=== PATIENT | female | born 1990 | race Caucasian/White ===

== ENCOUNTER 2018-03-18 21:16 | Emergency (ER) | payer BC ==
[~2018-03-18] VITALS: Ht 157.5 cm; Wt 83.9 kg
[2018-03-18 22:08] LABS: BASOPHILS % (AUTO) 0 % (0-10); EOSINOPHILS # (AUTO) 0.1 10^3/uL (0.0-0.3); EOSINOPHILS % (AUTO) 1 % (0-10); HEMATOCRIT 33 % (35-52); HEMOGLOBIN 11.7 G/DL (11.5-16.0); LYMPHOCYTES # (AUTO) 1.9 X 10^3 (1.0-4.0); LYMPHOCYTES % (AUTO) 19 % (12-44); MEAN CORPUSCULAR HEMOGLOBIN 29 PG (25-34); MEAN CORPUSCULAR HGB CONC 35 G/DL (32-36); MEAN CORPUSCULAR VOLUME 83 FL (80-99); MEAN PLATELET VOLUME 9.2 FL (7.4-10.4); MONOCYTES # (AUTO) 0.5 X 10^3 (0.0-1.0); MONOCYTES % (AUTO) 5 % (0-12); NEUTROPHILS # (AUTO) 7.7 X 10^3 (1.8-7.8); NEUTROPHILS % (AUTO) 75 % (42-75); PLATELET COUNT 281 10^3/uL (130-400); RED BLOOD COUNT 4.02 10^6/uL (4.35-5.85); RED CELL DISTRIBUTION WIDTH 14.6 % (10.0-14.5); WHITE BLOOD COUNT 10.3 10^3/uL (4.3-11.0)
[2018-03-18 22:20] LABS: BILIRUBIN,URINE NEGATIVE (NEGATIVE); CLARITY,URINE CLEAR; COLOR,URINE YELLOW; GLUCOSE, URINE (UA) NEGATIVE (NEGATIVE); KETONES,URINE NEGATIVE (NEGATIVE); LEUKOCYTE ESTERASE ,URINE NEGATIVE (NEGATIVE); NITRITE,URINE NEGATIVE (NEGATIVE); PH,URINE 7 (5-9); PROTEIN,URINE NEGATIVE (NEGATIVE); UROBILINOGEN,URINE NORMAL (NORMAL)
[2018-03-18 22:27] LABS: BACTERIA,URINE FEW /HPF
[2018-03-18 22:28] LABS: ALANINE AMINOTRANSFERASE 19 U/L (0-55); ALBUMIN 3.6 GM/DL (3.2-4.5); ALKALINE PHOSPHATASE 49 U/L (40-136); BILIRUBIN,TOTAL 0.3 MG/DL (0.1-1.0); BUN/CREATININE RATIO 9; CALCIUM 9.1 MG/DL (8.5-10.1); CARBON DIOXIDE 18 MMOL/L (21-32); CHLORIDE 107 MMOL/L (98-107); CREATININE SERUM 0.53 MG/DL (0.60-1.30); GFR ESTIMATED > 60; GLUCOSE 103 MG/DL (70-105); POTASSIUM 3.2 MMOL/L (3.6-5.0); SODIUM 137 MMOL/L (135-145)
--- NOTE | 2018-03-19 00:01 | ED GU-Female ---
General Chief Complaint: -Female Stated Complaint: 18.5W OB, BLEEDING Nursing Triage Note: PT AMB TO ROOM #7 W/O DIFFICULTY. A&OX4. PT REPORTS SHE IS 18.5 WKS AND WENT TO USE THE RESTROOM APPROX 2029 THIS EVENING WHEN SHE NOTICED "BRIGHT RED BLEEDING WHILE WIPING AND IN THE TOILET AFTER URINATION." PT DENIES ANY ABD. PAIN OR DISCOMFORT. PT NOT ACTIVELY BLEEDING. Nursing Sepsis Screen: No Definite Risk Source: patient Exam Limitations: no limitations History of Present Illness Date Seen by Provider: Mar 19, 2018 Time Seen by Provider: 20:30 Initial Comments This 28-year-old young lady presents to the emergency room at approximately 18 weeks gestational age with complaints of bright red blood per vagina on toilet paper after urinating. She denies any abdominal pain or cramping. She reports having some small bleeding around 6 weeks gestational age but none since then until today. She denies any intercourse or other vaginal disruption prior to the bleeding. heart tones are reassuring by Doppler. Blood type is A+. Allergies and Home Medications Patient Home Medication List Home Medication List Reviewed: Yes Review of Systems Review of Systems Constitutional: no symptoms reported EENTM: no symptoms reported Respiratory: no symptoms reported Cardiovascular: no symptoms reported Gastrointestinal: no symptoms reported Genitourinary: see HPI : Yes Musculoskeletal: no symptoms reported Skin: no symptoms reported Psychiatric/Neurological: No Symptoms Reported Endocrine: No Symptoms Reported Hematologic/Lymphatic: No Symptoms Reported Past Qhwutjp-Ldmpkq-Tehliw Hx Patient Social History Alcohol Use: Denies Use Recreational Drug Use: No Smoking Status: Never a Smoker 2nd Hand Smoke Exposure: No Recent Foreign Travel: No Contact w/Someone Who Travel: No Recent Infectious Disease Expo: No Recent Hopitalizations: No Physical Abuse: No Sexual Abuse: No Seasonal Allergies Seasonal Allergies: No Past Medical History Tonsillectomy Respiratory: No Cardiac: No Neurological: No Hx : 1 Hx Para: 0 Genitourinary: No Gastrointestinal: No Musculoskeletal: No Endocrine: No HEENT: No Cancer: No Psychosocial: No Integumentary: No Blood Disorders: No Physical Exam Vital Signs Vital Signs - First Documented 03/18/18 22:01 Temp 99.4 Pulse 81 Resp 17 B/P (MAP) 127/79 (95) Pulse Ox 98 O2 Delivery Room Air Capillary Refill : Less Than 3 Seconds Height, Weight, BMI Height: 5'2.00" Weight: 185lbs. oz. 83.909587qa; BMI Method:Stated General Appearance: WD/WN, no apparent distress HEENT: normal ENT inspection Neck: normal inspection Cardiovascular: regular rate, rhythm, no edema, no murmur Respiratory: lungs clear, normal breath sounds, no respiratory distress, no accessory muscle use Gastrointestinal: normal bowel sounds, non tender, soft, other ( heart tones in the 150s) Extremities: normal inspection, no pedal edema Neurologic/Psychiatric: [employer] II-XII nml as tested, no motor/sensory deficits, alert, normal mood/affect, oriented x 3 Skin: normal color, warm/dry Progress/Results/Core Measures Suspected Sepsis Recent Fever Within 48 Hours: No Infection Criteria Present: None New/Unexplained Altered Menta: No Sepsis Screen: No Definite Risk SIRS Temperature:99.4 Pulse: 81 Respiratory Rate: 17 Laboratory Tests 03/18/18 21:55: White Blood Count 10.3 Blood Pressure 127 /79 Mean: 95 Laboratory Tests 03/18/18 21:55: Creatinine 0.53L, Platelet Count 281, Total Bilirubin 0.3 Results/Orders Lab Results My Orders Vital Signs/I&O Capillary Refill : Less Than 3 Seconds Blood Pressure Mean: 95 Progress Note : Progress Note Patient does not seem to be actively bleeding at this time. heart tones are reassuring. There is no pain or cramping. Close follow-up with her hop weigher was recommended with vaginal rest in the meantime. Departure Impression Primary Impression: Vaginal bleeding during Disposition: 01 HOME, SELF-CARE Condition: Improved Departure-Patient Inst. Decision time for Depature: 23:57 Referrals: BRITTON BEYER DO (PCP/Family) Primary Care Physician Patient Instructions: NO INSTRUCTIONS GIVEN Add. Discharge Instructions: Observe strict pelvic rest until cleared by Dr. BEYER. This means nothing vaginally including intercourse. Return to care if you develop worsening symptoms or new symptoms such as pain, cramping, fever, or increased bleeding. Contact Dr. BEYER first thing in the morning for follow-up instructions. All discharge instructions reviewed with patient and/or family. Voiced understanding. Copy Copies To 1: BRITTON BEYER JOSHUA T MD Mar 19, 2018 00:01
[2018-03-19 00:07] VITALS: BP 110/76
== END 2018-03-19 00:08 | disposition home or self-care (01) ==
LOC: EDUNIT# 21:16 → ER 21:18
DX: O20.9 Hemorrhage in early pregnancy, unspecified (principal); Z3A.18 18 weeks gestation of pregnancy; Z90.89 Acquired absence of other organs
CPT/HCPCS: 36415; 80053; 81000; 84702; 85025; 86900; 86901

== ENCOUNTER → 2018-03-31 | Outpatient (CLI) | payer BC ==
--- NOTE | 2018-03-31 12:01 | Diagnostic Imaging Report ---
INDICATION: survey. TECHNIQUE: Multiple real-time grayscale images were obtained over the gravid uterus. COMPARISON: None FINDINGS: There is a single live fetus in a breech presentation. heart rate was recorded at 138 beats per minute. The placenta is anterior. The lip of the placenta is approximately 2.2 cm from the internal cervical os. Amniotic fluid volume appears normal. Cervical length is 4.3 cm. survey demonstrates kidneys, bladder and stomach to be unremarkable although the left kidney does show slight prominence of the renal pelvis measuring 6 mm. brain is unremarkable. There is a three-vessel cord. Cord insertion was not well seen. In addition, four-chamber heart view is not well seen. The spine is unremarkable. Biometrical measurements are as follows: Biparietal 5.02 cm, age 21 weeks 2 days. Head circumference 18.6 cm, age 21 weeks 0 days. Abdominal circumference 16.28 cm, age 21 weeks 3 days. Femur length 3.73 cm, age 22 weeks 0 days. Sonographic estimate age: 21 weeks 3 days. Sonographic estimated date of delivery: 08/08/2018. Estimated Weight: 430 gm (+/- 63 gm). LMP percentile: 91%. heart rate: 138 beats per minute. number: 1 of 1. IMPRESSION: Single live IUP 21 weeks 3 days gestational age. Estimated date of confinement sonographically is 08/08/2018. Note is made that the cord insertion and four-chamber heart views were not well visualized due to position. Followup ultrasound could be performed. Dictated by: Dictated on workstation # [id number]
== END ==
LOC: RAD 09:48 → EDUNIT# 10:00
PROVIDERS: ATTEND Obstetrics & Gynecology
DX: Z36.89 Encounter for other specified antenatal screening (principal); Z3A.21 21 weeks gestation of pregnancy
CPT/HCPCS: 76805

== ENCOUNTER 2018-07-24 19:47 | Outpatient (CLI) | payer BC ==
[~2018-07-24] VITALS: Ht 160 cm; Wt 89.8 kg
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
[2018-07-24 19:52] VITALS: BP 125/85
[2018-07-24] MEDS ORDERED: LACTATED RINGERS 1,000 ML IV ONE ×2 (20:12→20:30)
[2018-07-24] MEDS ORDERED: LACTATED RINGERS 1,000 ML IV SCH (20:15)
[2018-07-24 21:26] LABS: BILIRUBIN,URINE NEGATIVE (NEGATIVE); CLARITY,URINE CLEAR; COLOR,URINE YELLOW; GLUCOSE, URINE (UA) NEGATIVE (NEGATIVE); KETONES,URINE NEGATIVE (NEGATIVE); LEUKOCYTE ESTERASE ,URINE NEGATIVE (NEGATIVE); NITRITE,URINE NEGATIVE (NEGATIVE); PH,URINE 6.5 (5-9); PROTEIN,URINE 1+ (NEGATIVE); UROBILINOGEN,URINE NORMAL (NORMAL)
[2018-07-24] MEDS: D5 LR IV SOLUTION 1,000 ML IV SCH (21:26)
[2018-07-24 21:33] LABS: BACTERIA,URINE FEW /HPF; WBC,URINE 0-2 /HPF
[2018-07-24] MEDS ORDERED: ZOLPIDEM 5 MG (AMBIEN) TAB ONE (22:59)
[2018-07-24] MEDS ORDERED: ACETAMINOPHEN 500 MG TAB (TYLENOL) ONE (22:59)
[2018-07-24] MEDS ORDERED: FAMOTIDINE 20 MG (PEPCID) TABLET PO PRN (23:00)
[2018-07-24] MEDS ORDERED: ZOLPIDEM 5 MG (AMBIEN) TAB PO PRN (23:00)
[2018-07-24] MEDS ORDERED: ACETAMINOPHEN 500 MG TAB (TYLENOL) PO PRN (23:00)
[2018-07-24 23:29] VITALS: BP 113/65
[2018-07-25] MEDS ORDERED: DOXY25TA56 PO (03:54)
[2018-07-25] MEDS ORDERED: FAMO-119 PO (03:54)
[2018-07-25] MEDS ORDERED: B6/F1TAB PO (03:54)
[2018-07-25] MEDS ORDERED: PNV1TABL65 PO (03:54)
[2018-07-25] MEDS: D5 LR IV SOLUTION 1,000 ML IV SCH (05:24)
--- NOTE | 2018-07-25 06:20 | NUR ---
Dr. Mcgrath called to check on pt, update given, new order rc'd for regular diet, will round on pt. later this am.
[2018-07-25 08:04] VITALS: BP 108/66
--- NOTE | 2018-07-25 08:05 | NUR ---
PT IN BED, S/O AT THE BEDSIDE. INITIAL SHIFT ASSESSMENT COMPLETED; SEE INTERVENTION FOR FURTHER. NO NEEDS VOICED AT THIS TIME. BREAKFAST TRAY REMOVED. CALL LIGHT WITHIN REACH.
--- NOTE | 2018-07-25 09:00 | NUR ---
REFER TO LABOR FLOW SHEET.
--- NOTE | 2018-07-25 09:24 | NUR ---
DISCHARGE PAPERS PROVIDED AND REVIEWED WITH PT. PT VERBALIZES UNDERSTANDING AND DENIES ANY QUESTIONS AT THIS TIME. PAPER SIGNED. S/O AT THE BEDSIDE.
--- NOTE | 2018-07-25 09:27 | NUR ---
PT DISCHARGED FROM [facility] TO [facility] IN STABLE CONDITION ACC BY S/O.
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
== END 2018-07-25 09:27 | disposition home or self-care (01) ==
LOC: WSo 19:47 → LDRP 19:48 → WSo 07-25 09:27 → WS 07-25 11:51 → LDRP 07-25 11:51
PROVIDERS: ATTEND Obstetrics & Gynecology
DX: O62.2 Other uterine inertia (principal); Z3A.37 37 weeks gestation of pregnancy; V40.5XXA Car driver injured in collision with pedestrian or animal in traffic accident, initial encounter
CPT/HCPCS: 81000; 96360; 96361; 99213

== ENCOUNTER 2018-08-06 17:23 | Outpatient (CLI) | payer BC ==
[~2018-08-06] VITALS: Ht 160 cm; Wt 88.9 kg
[~2018-08-06 17:23] MED LIST: B6/F1TAB PO; DOXY25TA56 PO; FAMO-119 PO; PNV1TABL65 PO
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
[2018-08-06 17:35] VITALS: BP 121/86
--- NOTE | 2018-08-06 17:45 | NUR ---
sve by this rn cervix soft, high, posterior 3cm 70-80% effaced. old brown blood noted on exam glove. no leaking. membranes palpated with exam, able to bounce presenting part off cervix. reviewed plan to notify dr of assessment and co verbalized understanding of plan. s/o at bedside.
--- NOTE | 2018-08-06 17:52 | NUR ---
dr caruso notified of patient status, c/o, fhr pattern/uterine activity. continuing to observe for active labor.
[2018-08-06 18:44] LABS: BILIRUBIN,URINE NEGATIVE (NEGATIVE); CLARITY,URINE CLEAR; COLOR,URINE YELLOW; GLUCOSE, URINE (UA) NEGATIVE (NEGATIVE); KETONES,URINE NEGATIVE (NEGATIVE); LEUKOCYTE ESTERASE ,URINE NEGATIVE (NEGATIVE); NITRITE,URINE NEGATIVE (NEGATIVE); PH,URINE 6.5 (5-9); PROTEIN,URINE NEGATIVE (NEGATIVE); UROBILINOGEN,URINE NORMAL (NORMAL)
[2018-08-06 18:55] LABS: BACTERIA,URINE MODERATE /HPF; RBC,URINE 0-2 /HPF
--- NOTE | 2018-08-06 19:25 | NUR ---
SVE with no change and pt denies pain at this time, Dr Boyer called and discharge instructions given.
--- NOTE | 2018-08-06 19:38 | NUR ---
Pt given verbal and written discharge instructions and then ambulated to private vehicle with SO. No concerns at this time
[2018-08-06 20:12] VITALS: BP 121/86
--- NOTE | 2018-08-11 10:04 | Physician Query-Final Dx ---
SUSAN MANSFIELD 08/11/18 1004: Clinic Account Progress/Dx Physician Query: Please give a diagnosis and include the weeks of gestation thank you Date of Service Aug 06, 2018 at 17:23 LIZZIE LANG MD 08/11/18 1455: Clinic Account Progress/Dx DIAGNOSIS: Diagnosis False labor at 37 weeks gestation SUSAN MANSFIELD Aug 11, 2018 10:04 LIZZIE LANG MD Aug 11, 2018 14:55
== END 2018-08-06 19:38 | disposition home or self-care (01) ==
LOC: WSo 17:23 → LDRP 17:23 → WSo 19:38
PROVIDERS: ATTEND Obstetrics & Gynecology
DX: O47.1 False labor at or after 37 completed weeks of gestation (principal); Z3A.37 37 weeks gestation of pregnancy
CPT/HCPCS: 81000; 87088; 99213

== ENCOUNTER 2018-08-14 14:00 | Inpatient (IN) | payer BC ==
[~2018-08-14] VITALS: Ht 160 cm; Wt 89.9 kg
[2018-08-14] VITALS (37 sets, daily range): BP systolic 110–145; BP diastolic 66–84
--- NOTE | 2018-08-14 13:50 | NUR ---
JILLIAN ANDERSON presented to unit via ambulation, accompanied by S.O., for INDUCTION. JILLIAN ANDERSON weighed, gowned, voided, and to bed. EFHM and TOCO applied, VS taken. JILLIAN ANDERSON oriented to bed controls, call light, TV, heat, and A/C controls.
[2018-08-14] MEDS ORDERED: D5 LR IV SOLUTION 1,000 ML IV ONE (14:10)
[2018-08-14] MEDS ORDERED: D5 LR IV SOLUTION 1,000 ML IV SCH (15:49)
[2018-08-14] MEDS ORDERED: MINERAL OIL CONCENTRATE 99.9% 15 ML UDC TOP PRN (16:00)
[2018-08-14 16:04] LABS: BASOPHILS % (AUTO) 0 % (0-10); EOSINOPHILS % (AUTO) 0 % (0-10); HEMATOCRIT 36 % (35-52); HEMOGLOBIN 12.3 G/DL (11.5-16.0); LYMPHOCYTES # (AUTO) 1.5 X 10^3 (1.0-4.0); LYMPHOCYTES % (AUTO) 17 % (12-44); MEAN CORPUSCULAR HEMOGLOBIN 28 PG (25-34); MEAN CORPUSCULAR HGB CONC 34 G/DL (32-36); MEAN CORPUSCULAR VOLUME 83 FL (80-99); MEAN PLATELET VOLUME 10.2 FL (7.4-10.4); MONOCYTES # (AUTO) 0.6 X 10^3 (0.0-1.0); MONOCYTES % (AUTO) 7 % (0-12); NEUTROPHILS # (AUTO) 6.8 X 10^3 (1.8-7.8); NEUTROPHILS % (AUTO) 76 % (42-75); PLATELET COUNT 224 10^3/uL (130-400); WHITE BLOOD COUNT 8.9 10^3/uL (4.3-11.0)
[2018-08-14] MEDS ORDERED: OXYTOCIN/NORMAL SALINE 500 ML IV SCH (17:42)
[2018-08-14] MEDS ORDERED: BUPIVACAINE 0.25% 30 ML (SENSORCAINE) VIAL ONE (18:03)
[2018-08-14] MEDS ORDERED: LIDOCAINE PF 2% 5 ML (XYLOCAINE) VIAL ONE (18:03)
[2018-08-14] MEDS ORDERED: fentaNYL INJECTION 100 MCG/2 ML AMP ONE (18:04)
[2018-08-14] MEDS ORDERED: SUFENTA 0.6MCG/ML BUPIVA 0.125 100 ML ONE (18:31)
--- NOTE | 2018-08-14 18:35 | History & Physical-OB ---
OB - Chief Complaint & HPI Date/Time Date of Admission: Date of Admission: Aug 14, 2018 at 2:00 pm Date seen by a Provider: Aug 14, 2018 Time Seen by a Provider: 18:33 Chief Complaint/History OB-Reason for Admission/Chief: Induction of Labor Hx : 1 Hx Para: 0 Expected Date of Delivery: Aug 14, 2018 Gestational Age in Weeks: 40 Gestational Age in Days: 0 Indication for induction: post dates Admission Nurse Assessment Rev: Yes History of Labs A pos Antibody neg RI RPR NR HBsAg NR HIV NR GC neg GBS neg Allergies and Home Medications Allergies Coded Allergies: No Known Drug Allergies (Unverified , 07/24/18) Home Medications B6/FA/B12/Co Q10/Herb No.225 1 Each Tablet, 1 EACH PO DAILY, (Reported) Doxylamine Succinate 25 Mg Tablet, 25 MG PO HS PRN for sl, (Reported) Famotidine 20 Mg Tablet, 20 MG PO HS PRN for DYSPEPSIA, (Reported) Pnv with Ca,No.72/Iron/FA 1 Each Tablet, 1 EACH PO DAILY, (Reported) Patient Home Medication List Home Medication List Reviewed: Yes OB - History Hx of Present Care: Yes Ultrasounds: Normal mid trimester US Obstetrical Complications: None Medical Complications: None Patient Past Medical History n/a Social History/Family History HIV/AIDS: No Recent Infectious Disease Expo: No Sexually Transmitted Disease: No Alcohol Use: Denies Use Recreational Drug Use: No 2nd Hand Smoke Exposure: No Immunizations Hepatitis A: No Hepatitis B: Yes Date of Influenza Vaccine: May 26, 2018 OB - Admission Exam Physical Exam HEENT: NCAT Heart: Rhythm Normal Lungs: Clear Abdomen: Gravid Extremities: Normal Reflexes: Normal Cervical Dilatation: 5cm Effacement: 75% Station: -1 Membranes: Intact Heart Rate: 130's Accelerations: Accelerations Present Decelerations: No Decelerations Short Term Variability: Present Retirement Variability: Average (6-25) Contractions on Admission: < 5 Minutes Apart Intensity: Mild Labs Laboratory Tests Test 08/14/18 14:30 Range/Units White Blood Count 8.9 4.3-11.0 10^3/uL Red Blood Count 4.39 4.35-5.85 10^6/uL Hemoglobin 12.3 11.5-16.0 G/DL Hematocrit 36 35-52 % Mean Corpuscular Volume 83 80-99 FL Mean Corpuscular Hemoglobin 28 25-34 PG Mean Corpuscular Hemoglobin Concent 34 32-36 G/DL Red Cell Distribution Width 14.0 10.0-14.5 % Platelet Count 224 130-400 10^3/uL Mean Platelet Volume 10.2 7.4-10.4 FL Neutrophils (%) (Auto) 76 H 42-75 % Lymphocytes (%) (Auto) 17 12-44 % Monocytes (%) (Auto) 7 0-12 % Eosinophils (%) (Auto) 0 0-10 % Basophils (%) (Auto) 0 0-10 % Neutrophils # (Auto) 6.8 1.8-7.8 X 10^3 Lymphocytes # (Auto) 1.5 1.0-4.0 X 10^3 Monocytes # (Auto) 0.6 0.0-1.0 X 10^3 Eosinophils # (Auto) 0.0 0.0-0.3 10^3/uL Basophils # (Auto) 0.0 0.0-0.1 10^3/uL OB - Assessment/Plan/Diagnosis Assessment Assessment: induction of labor Admission Dx 28 yo @ 40 weeks Post dates GBS neg Admission Status: Inpatient Order (span 2 midnights) Reason for Inpatient Admission: Induction of term labor Plan Plan: Induction Induction Method: BRITTON IBARRA DO Aug 14, 2018 6:35 pm
--- NOTE | 2018-08-14 18:36 | NUR ---
Trino Yanes CRNA here for epidural placement. Procedure explained, consent reviewed and signed by anesthesia. Questions answered to patient's satisfaction. Time out taken to verify correct patient/procedure. Patient up to side of bed, assisted into sitting position. Betadine prep done x3 and sterile drape applied. Local done, see anesthesia record. Test dose given, see anesthesia record for drug and dosage. Epidural catheter secured in place. Epidural placement complete. Assisted back into bed, monitors adjusted. Epidural dosed, see anesthesia record. Epidural of Sufenta/Bupvicaine @12 cc/hr stated per pump. Patient tolerated procedure well.
--- NOTE | 2018-08-14 18:36 | NUR ---
JILLIAN ANDERSON presented to unit via ambulation, accompanied by s.o., with for induction. JILLIAN ANDERSON weighed, gowned, voided, and to bed. EFHM and TOCO applied, VS taken. JILLIAN ANDERSON oriented to bed controls, call light, TV, heat, and A/C controls. Addendum: 08/14/18 at 2006 by AKIRA LUIS RN Note entered in error, wrong time
[2018-08-14] MEDS ORDERED: LACTATED RINGERS 1,000 ML IV SCH (18:51)
[2018-08-14] MEDS ORDERED: ONDANSETRON 4 MG/2 ML (SDV) Z0FRAN IV PRN (19:00)
[2018-08-14] MEDS ORDERED: diphenhydrAMINE 50 MG/ML INJ (BENADRYL) IV PRN (19:00)
[2018-08-14] MEDS ORDERED: NALOXONE 0.4 MG/ML 1 ML (NARCAN) VIAL IV PRN (19:00)
[2018-08-14] MEDS ORDERED: EPIDURAL (SUFENTA 0.6MCG/ML BUPIVA 0.125%) 100 ML BAG EPI PRN (19:00)
[2018-08-14] MEDS ORDERED: CATHETER FLUSH 10 ML SYR IV SCH (22:00)
[2018-08-14] MEDS ORDERED: LIDOCAINE/EPI 2% 1:200,00 (XYLOCAINE) 10 ML VIAL ONE (22:41)
[2018-08-14] MEDS: OXYTOCIN/NORMAL SALINE 500 ML IV SCH ×2 (23:21→23:55)
[2018-08-14] MEDS ORDERED: METHYLERGONOVINE 0.2 MG/ML (METHERGINE) AMP ONE (23:28)
[2018-08-14] MEDS ORDERED: HYDROcodone/APAP 5 MG/325 MG (LORTAB) TAB PO PRN (23:45)
[2018-08-14] MEDS ORDERED: BENZOCAINE/MENTHOL (DERMOPLAST) 56 ML CAN TP PRN (23:45)
[2018-08-14] MEDS ORDERED: DIBUCAINE (NUPERCAINAL) 1% OINT 30 GM TOP PRN (23:45)
[2018-08-14] MEDS ORDERED: WITCH HAZEL(TUCKS) 40 EA JAR TOP PRN (23:45)
[2018-08-14] MEDS ORDERED: TETANUS,DIPTH,PERTUSS P/F (BOOSTRIX) 0.5 ML VIAL IM ONE (23:45)
[2018-08-14] MEDS ORDERED: MEASLES,MUMPS,RUBELLA 1 EA INJ SQ ONE (23:45)
--- NOTE | 2018-08-14 23:53 | OB Labor & Delivery Record ---
L&D History Date of Service Date of Service: Aug 14, 2018 History Expected Date of Delivery: Aug 14, 2018 Gestational Age in Weeks: 40 Hx : 1 Hx Para: 0 Complications Events: Routine care Operative Indications (Cesarea: N/A-Vaginal Delivery Intrapartal Events: None L&D Stage1 Stage One Onset of Labor - Date: Aug 14, 2018 Monitors and Tracing Monitor Mode: External Heart Rate: 125 Monitor Accelerations: Uniform Monitor Decelerations: None Station: -1 Leaf Blender Variability: Average (6-10) Short Term Variability: Present Presentation: Vertex Vital Signs VS - Last 72 Hours, by Label 08/14/18 08/14/18 08/14/18 08/14/18 14:10 15:30 17:55 18:40 Temp 97.6 97.8 Pulse 98 87 96 101 Resp 18 18 18 20 B/P (MAP) 118/77 (91) 116/75 (89) 119/70 (86) 129/84 (99) Pulse Ox 99 O2 Delivery Room Air 08/14/18 08/14/18 08/14/18 08/14/18 18:48 18:53 18:58 19:01 Pulse 100 99 103 103 Resp 20 20 20 18 B/P (MAP) 124/83 (97) 126/83 (97) 129/73 (91) 114/67 (83) Pulse Ox 99 99 99 O2 Delivery Room Air Room Air Room Air Room Air 08/14/18 08/14/18 08/14/18 08/14/18 19:04 19:07 19:10 19:12 Pulse 100 118 108 115 Resp 18 18 18 18 B/P (MAP) 114/67 (83) 119/75 (90) 116/76 (89) 115/71 (86) O2 Delivery Room Air Room Air Room Air Room Air 08/14/18 08/14/18 08/14/18 08/14/18 19:15 19:21 19:25 19:31 Temp 97.0 Pulse 99 104 111 104 Resp 18 18 18 16 B/P (MAP) 117/75 (89) 118/72 (87) 113/66 (82) 119/74 (89) O2 Delivery Room Air Room Air Room Air Room Air 08/14/18 08/14/18 08/14/18 08/14/18 19:35 19:42 19:46 19:52 Pulse 98 100 100 98 Resp 16 16 16 16 B/P (MAP) 120/75 (90) 119/78 (92) 116/68 (84) 122/69 (86) O2 Delivery Room Air Room Air Room Air Room Air 08/14/18 08/14/18 08/14/18 08/14/18 19:56 20:02 20:15 20:30 Pulse 90 93 90 92 Resp 16 16 16 16 B/P (MAP) 116/76 (89) 118/75 (89) 114/74 (87) 116/72 (87) O2 Delivery Room Air Room Air Room Air Room Air Rupture of Membranes Spontaneous Ruture of Membrane: No Amniotic Membrane Rupture Time: 1545 Amniotic Membrane Fluid Desc.: Clear Vaginal Bleeding Description: Normal Show Induction/Anesthesia Epidural Cath Placement - Time: 1848 Progress/Notes Pitocin augmentation used to a max dose of 8 mu/min, patient progressed to complete and +1 station before attempting/encouraged to push L&D Stage2 Stage Two Stage II Date: Aug 14, 2018 Monitors and Tracing Monitor Mode: External Heart Rate: 125 Monitor Decelerations: Variable Leaf Blender Variability: Minimal (3-5) Short Term Variability: Present Position: Right Occiput Anterior Presentation: Vertex Signs of Distress by FHT Signs of Distress Prolonged episode of bradycardia 60-80s lasting approx 5 min, due to distress kiwi vacuum extractor briefly explained to the patient for low vacuum extraction. After position confirmed, and noted at +2-+3 station, suction cup placed down sagital suture. 550 mmHg applied by vacuum hand pump at the start of the next contraction. The with gentle extension of the head, and rml the 's head was delivered. Nuchal cord reduced x 1. Anterior right and then posterior shoulder-left delivered. Then remainder of the infant is then brought out onto maternal abdomen. Cord Descript/Complications Cord Vessel Description: 3 Vessels Complications nuchal cord reduced x 1 Delivery Type Infant Delivery Method: Low Vacuum Extraction Anterior Shoulder: Right Episiotomy/Perineal Laceration Laceraction(s)/Extensions: Yes Episiotomy Description: Right Mediolateral Location Modifier: Right Sutures Used: Vicryl Degree (describe repair) RML repaired in usual fashion using 3-0 rapide and 2-0 vicryl suture Condition of Infant Delivery 1 minute Comment: 8 5 minute Comment: 9 Notes Live female infant weight 8lbs 6 oz. Condition of Infant Condition of Infant: Living Exam: No Observed Abnormalities Resuscitation Resuscitation: N/A - Spontaneous Resp L&D Stage3 Stage Three Stage III Date: Aug 14, 2018 Pictocin Pitocin Administration mu/min: 8 Pitocin ml/hr: 8 Pitocin Administration Comment: Pitocin increased per protocol. Retained portion of the placenta identified at time of exam after placenta had passed. Due to adequate analgesia, a nirav curette is used to gentle curette and remove the remaining tissue. After which uterine fundus became firm. 0.2 mg Methergine given IM to ensure good uterine tone. Placenta Delivery Placenta Delivery: Spontaneous Delivery Summary Summary Estimated blood loss (mL): 400 Attending at delivery: Britton Beyer DO Condition of Delivery Examined: Cervix Examined, Uterus Explored Post Hemorrhage: No Condition of Mother stable Condition of (s) stable BRITTON BEYER DO Aug 14, 2018 11:53 pm
--- NOTE | 2018-08-14 23:56 | Discharge Inst-Women's Service ---
Discharge Inst-Women's Serv Depart Medication/Instructions New, Converted or Re-Newed RX: RX on Chart Final Diagnosis PPD 2 VAVD Consults/Follow Up Additional Follow Up: Yes Orders/Referrals Dr. Beyer in 6 weeks Activity Activity: Activity as Tolerated Driving Instructions: No Driving for 1 Week NO SMOKING: NO SMOKING Nothing Inside Vagina: No Douching, No [place], No Tampons Diet Discharge Diet: No Restrictions Symptoms to Report to : Bleeding Excessive, Pain Increased, Fever Over 101 Degrees F, Vaginal Bleeding Increase, Questions/Concerns For Any Problems or Questions: Contact Your Physician BRITTON BEYER DO Aug 14, 2018 11:56 pm
[2018-08-14] MEDS ORDERED: Benzocaine/Menthol TP (23:57)
[2018-08-14] MEDS ORDERED: DOCU100C37 PO (23:57)
[2018-08-14] MEDS ORDERED: IBUP-844 PO (23:57)
[2018-08-14] MEDS ORDERED: FERR325T18 PO (23:57)
[2018-08-14] MEDS ORDERED: ACHD5005 PO (23:57)
[2018-08-15] VITALS (13 sets, daily range): BP systolic 99–120; BP diastolic 56–80
[2018-08-15] MEDS: IBUPROFEN 600 MG (MOTRIN) TAB PO SCH ×4 (02:19→22:37)
--- NOTE | 2018-08-15 03:10 | NUR ---
Pt. transferred to PP room 312 via wheelchair, accompanied by staff, SO, and . Pt. oriented to room, call light, and room service. Ice water and packet given and explained to pt. Will continue to monitor.
--- NOTE | 2018-08-15 03:15 | NUR ---
Pt. ambulated to bathroom with stand by assist and was able to void without difficulty.
[2018-08-15 04:33] LABS: BASOPHILS % (AUTO) 0 % (0-10); EOSINOPHILS % (AUTO) 0 % (0-10); HEMATOCRIT 32 % (35-52); HEMOGLOBIN 10.8 G/DL (11.5-16.0); LYMPHOCYTES # (AUTO) 1.2 X 10^3 (1.0-4.0); LYMPHOCYTES % (AUTO) 9 % (12-44); MEAN CORPUSCULAR HEMOGLOBIN 28 PG (25-34); MEAN CORPUSCULAR HGB CONC 34 G/DL (32-36); MEAN CORPUSCULAR VOLUME 83 FL (80-99); MEAN PLATELET VOLUME 9.6 FL (7.4-10.4); MONOCYTES # (AUTO) 0.8 X 10^3 (0.0-1.0); MONOCYTES % (AUTO) 6 % (0-12); NEUTROPHILS # (AUTO) 12.6 X 10^3 (1.8-7.8); NEUTROPHILS % (AUTO) 86 % (42-75); PLATELET COUNT 209 10^3/uL (130-400); RED CELL DISTRIBUTION WIDTH 13.9 % (10.0-14.5); WHITE BLOOD COUNT 14.6 10^3/uL (4.3-11.0)
[2018-08-15] MEDS ORDERED: CATHETER FLUSH 10 ML SYR IV SCH (06:00)
--- NOTE | 2018-08-15 07:17 | Anesthesia-Regional Post-Op ---
Regional Patient Condition Mental Status: Alert, Oriented x3 Circulation: Same as Pre-Op Headache: Absent Sensation: Full Recovery Motor Block: Absent Post Op Complications Complications None Follow Up Care/Instructions Patient Instructions None needed. Anesthesia/Patient Condition Patient is doing well, no complaints, stable vital signs, no apparent adverse anesthesia problems. No complications reported per nursing. GAYATHRI CHE CRNA Aug 15, 2018 07:17
--- NOTE | 2018-08-15 08:52 | Postpartum Progress Note ---
Note Note Day # 1 Subjective: Patient is without complaints. Ambulating, voiding. Tolerating a regular diet without nausea or vomiting. Normal lochia. Pain is well controlled with oral pain medications. Objective: Physical Exam: General - Alert and oriented, no apparent distress Abdomen - Soft, appropriately tender to palpation, non-distended, fundus firm at umbilicus Extremities - no edema, negative Carl's bilaterally Assessment: PPD 1 VAVD Acute blood loss anemia Plan: Routine care. Encourage breast feeding. Encourage ambulation. Ferrous sulfate supplementation. Plan for discharge tomorrow Vitals - Labs Vital Signs - I&O Vital Signs Date Time Temp Pulse Resp B/P (MAP) Pulse Ox O2 Delivery O2 Flow Rate FiO2 08/15/18 05:25 97.9 70 16 105/71 (82) 98 Room Air 08/15/18 02:00 101 18 109/69 (82) Room Air 08/15/18 01:47 97 18 102/66 (78) Room Air 08/15/18 01:30 106 18 110/61 (77) Room Air 08/15/18 01:16 97 18 113/69 (84) Room Air 08/15/18 01:00 103 18 113/71 (85) Room Air 08/15/18 00:46 97 18 103/61 (75) Room Air 08/15/18 00:16 99 18 108/57 (74) Room Air 08/15/18 00:00 98.7 115 18 120/77 (91) Room Air 08/14/18 23:46 151 18 128/76 (93) Room Air 08/14/18 23:31 114 18 138/80 (99) Room Air 08/14/18 23:16 115 18 145/73 (97) Room Air 08/14/18 23:05 110 16 141/79 (99) 100 Non Rebreather 15.00 08/14/18 22:45 116 16 138/79 (98) Room Air 08/14/18 22:30 106 16 120/80 (93) Room Air 08/14/18 22:15 100 16 118/76 (90) Room Air 08/14/18 22:05 101 16 110/71 (84) Room Air 08/14/18 21:50 101 16 115/74 (88) Room Air 08/14/18 21:35 92 16 114/71 (85) Room Air 08/14/18 21:20 97 16 118/77 (91) Room Air 08/14/18 21:02 98.0 98 16 116/72 (87) Room Air 08/14/18 20:46 94 16 116/73 (87) Room Air 08/14/18 20:30 92 16 116/72 (87) Room Air 08/14/18 20:15 90 16 114/74 (87) Room Air 08/14/18 20:02 93 16 118/75 (89) Room Air 08/14/18 19:56 90 16 116/76 (89) Room Air 08/14/18 19:52 98 16 122/69 (86) Room Air 08/14/18 19:46 100 16 116/68 (84) Room Air 08/14/18 19:42 100 16 119/78 (92) Room Air 08/14/18 19:35 98 16 120/75 (90) Room Air 08/14/18 19:31 104 16 119/74 (89) Room Air 08/14/18 19:25 97.0 111 18 113/66 (82) Room Air 08/14/18 19:21 104 18 118/72 (87) Room Air 08/14/18 19:15 99 18 117/75 (89) Room Air 08/14/18 19:12 115 18 115/71 (86) Room Air 08/14/18 19:10 108 18 116/76 (89) Room Air 08/14/18 19:07 118 18 119/75 (90) Room Air 08/14/18 19:04 100 18 114/67 (83) Room Air 08/14/18 19:01 103 18 114/67 (83) Room Air 08/14/18 18:58 103 20 129/73 (91) 99 Room Air 08/14/18 18:53 99 20 126/83 (97) 99 Room Air 08/14/18 18:48 100 20 124/83 (97) 99 Room Air 08/14/18 18:40 101 20 129/84 (99) 99 Room Air 08/14/18 17:55 97.8 96 18 119/70 (86) 08/14/18 15:30 87 18 116/75 (89) 08/14/18 14:10 97.6 98 18 118/77 (91) I & O 2/1/19 07:00 Intake Total 3000 ml Balance 3000 ml Labs Laboratory Tests 08/14/18 14:30: White Blood Count 8.9, Red Blood Count 4.39, Hemoglobin 12.3, Hematocrit 36, Mean Corpuscular Volume 83, Mean Corpuscular Hemoglobin 28, Mean Corpuscular Hemoglobin Concent 34, Red Cell Distribution Width 14.0, Platelet Count 224, Mean Platelet Volume 10.2, Neutrophils (%) (Auto) 76H, Lymphocytes (%) (Auto) 17 , Monocytes (%) (Auto) 7, Eosinophils (%) (Auto) 0, Basophils (%) (Auto) 0, Neutrophils # (Auto) 6.8, Lymphocytes # (Auto) 1.5, Monocytes # (Auto) 0.6, Eosinophils # (Auto) 0.0, Basophils # (Auto) 0.0 08/15/18 04:05: White Blood Count 14.6H, Red Blood Count 3.84L, Hemoglobin 10.8L, Hematocrit 32L , Mean Corpuscular Volume 83, Mean Corpuscular Hemoglobin 28, Mean Corpuscular Hemoglobin Concent 34, Red Cell Distribution Width 13.9, Platelet Count 209, Mean Platelet Volume 9.6, Neutrophils (%) (Auto) 86H, Lymphocytes (%) (Auto) 9L , Monocytes (%) (Auto) 6, Eosinophils (%) (Auto) 0, Basophils (%) (Auto) 0, Neutrophils # (Auto) 12.6H, Lymphocytes # (Auto) 1.2, Monocytes # (Auto) 0.8, Eosinophils # (Auto) 0.0, Basophils # (Auto) 0.0 BRITTON BEYER DO Aug 15, 2018 08:52
[2018-08-15] MEDS: PRENATAL VITAMIN 1 EA TAB PO SCH (09:37)
[2018-08-15] MEDS: FERROUS SULF 325 MG (IRON) TAB PO SCH (09:37)
[2018-08-15] MEDS: DOCUSATE SODIUM 100 MG (COLACE) CAP PO SCH ×2 (09:37→20:38)
[2018-08-16 02:10] VITALS: BP 107/73
[2018-08-16] MEDS: IBUPROFEN 600 MG (MOTRIN) TAB PO SCH ×2 (04:50→06:21)
--- NOTE | 2018-08-16 08:16 | Postpartum Progress Note ---
Note Note Day # 2 Subjective: Patient is without complaints. Ambulating, voiding. Tolerating a regular diet without nausea or vomiting. Normal lochia. Pain is well controlled with oral pain medications. Objective: Physical Exam: General - Alert and oriented, no apparent distress Abdomen - Soft, appropriately tender to palpation, non-distended, fundus firm at umbilicus Extremities - no edema, negative Carl's bilaterally Assessment: PPD 2 VAVD Plan: Routine care. Encourage breast feeding. Encourage ambulation. Ferrous sulfate supplementation. Plan for discharge today Vitals - Labs Vital Signs - I&O Vital Signs Date Time Temp Pulse Resp B/P (MAP) Pulse Ox O2 Delivery O2 Flow Rate FiO2 08/16/18 02:10 97.4 73 18 107/73 (84) 98 Room Air 08/15/18 20:45 97.7 74 18 111/80 (90) 98 Room Air 08/15/18 16:11 98.0 90 18 107/67 (80) 98 Room Air 08/15/18 12:00 98.0 88 16 107/56 (73) 98 Room Air BRITTON BEYER DO Aug 16, 2018 8:15 am
[2018-08-16 08:30] VITALS: BP 121/71
[2018-08-16] MEDS: FERROUS SULF 325 MG (IRON) TAB PO SCH (11:54)
[2018-08-16] MEDS: PRENATAL VITAMIN 1 EA TAB PO SCH (11:54)
--- NOTE | 2018-08-16 11:55 | NUR ---
JILLIAN ANDERSON demonstrates understanding of discharge instructions and accurately returns instructions upon questioning. Copy of Post-Discharge Instructions and Medication Discharge Instructions given to patient. JILLIAN ANDERSON is able to manage continuing needs after discharge. Patients belongings returned to patient. Skin dry and intact; no breakdown noted. Patient discharged from 3312-1 on 08-16-18 at 1155. JILLIAN ANDERSON left floor via ambulation, accompanied by staff and family.
== END 2018-08-16 11:55 | disposition home or self-care (01) | DRG 787 ==
LOC: LDRP 14:00
PROVIDERS: ADMIT Obstetrics & Gynecology; ATTEND Obstetrics & Gynecology
PROC: 10D00Z1 Extraction of Products of Conception, Low, Open Approach (ICD-10-PCS; principal; 2018-08-14)
PROC: 0W8NXZZ Division of Female Perineum, External Approach (ICD-10-PCS; 2018-08-14)
DX: O48.0 Post-term pregnancy (principal); O76 Abnormality in fetal heart rate and rhythm complicating labor and delivery; O69.81X0 Labor and delivery complicated by cord around neck, without compression, not applicable or unspecified; O90.81 Anemia of the puerperium; D62 Acute posthemorrhagic anemia; Z37.0 Single live birth; Z3A.40 40 weeks gestation of pregnancy
CPT/HCPCS: 36415; 85025; 86850; 86900; 86901; 90471

== ENCOUNTER → 2019-07-21 | Outpatient (CLI) | payer BC, OTHER ==
[~2019-07-21] MED LIST changes: +ACHD5005 PO; +Benzocaine/Menthol TP; +DOCU100C37 PO; +FERR325T18 PO; +IBUP-844 PO
--- NOTE | 2019-07-21 12:24 | Diagnostic Imaging Report ---
INDICATION: survey. TECHNIQUE: Multiple Real-time grayscale images were obtained over the gravid uterus. COMPARISON: None. FINDINGS: There is a single live fetus in a breech presentation. The heart rate was recorded at 122 BPM. The placenta is posterior. The amniotic fluid index is 8.7 cm. The survey demonstrates the kidneys, bladder, and stomach to be unremarkable. The brain is unremarkable. There is a four-chamber heart. There is a three-vessel cord with normal insertion. The spine is unremarkable. Biometrical measurements are as follows: Biparietal 5.11 cm, age 21 weeks 4 days. Head circumference 19.24 cm, age 21 weeks 4 days. Abdominal circumference 16.22 cm, age 21 weeks 3 days. Femur length 3.72 cm, age 21 weeks 6 days. Sonographic estimate age: 21 weeks 5 days. Sonographic estimated date of delivery: 11/26/2019. Estimated Weight: 432 gm (+/- 63 gm). LMP percentile: 81%. heart rate: 122 beats per minute. number: 1 of 1. IMPRESSION: Single live IUP of 21 weeks 5 days gestational age with an estimated date of confinement sonographically of 11/26/2019. Dictated by: Dictated on workstation # [id number]
== END ==
LOC: RAD 09:56
PROVIDERS: ATTEND Obstetrics & Gynecology
DX: Z36.89 Encounter for other specified antenatal screening (principal); Z3A.21 21 weeks gestation of pregnancy
CPT/HCPCS: 76805

== ENCOUNTER 2019-11-12 14:09 | Inpatient (IN) | payer BC ==
[2019-11-12] VITALS (42 sets, daily range): BP systolic 91–131; BP diastolic 54–80
[~2019-11-12] VITALS: Ht 160 cm; Wt 85.0 kg
--- NOTE | 2019-11-12 14:20 | NUR ---
JILLIAN ANDERSON presented to unit via from ED, accompanied by self ( to arrive soon), with c/o LABOR. JILLIAN ANDERSON weighed, gowned, voided, and to bed. EFHM and TOCO applied, VS taken. JILLIAN ANDERSON oriented to bed controls, call light, TV, heat, and A/C controls.
[2019-11-12] MEDS ORDERED: D5 LR IV SOLUTION 1,000 ML IV ONE (14:27)
--- NOTE | 2019-11-12 14:28 | History & Physical-OB ---
OB - Chief Complaint & HPI Date/Time Date of Admission: Date of Admission: Nov 12, 2019 at 14:09 Date seen by a Provider: Nov 12, 2019 Time Seen by a Provider: 13:30 Chief Complaint/History OB-Reason for Admission/Chief: Onset of Labor Hx : 2 Hx Para: 1 Expected Date of Delivery: December 02, 2019 Gestational Age in Weeks: 37 Gestational Age in Days: 1 Admission Nurse Assessment Rev: Yes History of Labs GBS neg Allergies and Home Medications Allergies Coded Allergies: No Known Drug Allergies (Unverified , 07/24/18) Home Medications B6/FA/B12/Co Q10/Herb No.225 1 Each Tablet, 1 EACH PO DAILY, (Reported) Docusate Sodium 100 Mg Capsule, 100 MG PO BID PRN for CONSTIPATION-1ST LINE Prescribed by: BRITTON BEYER on 08/14/182356 Doxylamine Succinate 25 Mg Tablet, 25 MG PO HS PRN for sl, (Reported) Famotidine 20 Mg Tablet, 20 MG PO HS PRN for DYSPEPSIA, (Reported) Ferrous Sulfate 325 Mg Tablet, 325 MG PO DAILY Prescribed by: BRITTON BEYER on 08/14/182356 Hydrocodone Bit/Acetaminophen 1 Tab Tab, 1 TAB PO Q4H PRN for PAIN-MODERATE Prescribed by: BRITTON BEYER on 08/14/182356 Ibuprofen 600 Mg Tablet, 600 MG PO Q6H Prescribed by: BRITTON BEYER on 08/14/182356 Pnv with Ca,No.72/Iron/FA 1 Each Tablet, 1 EACH PO DAILY, (Reported) [Benzocaine/Menthol] 56 ML AEROSOL, 56 ML TP UD PRN for PAIN- SEE INSTRUCTIONS EXTERNAL USE ONLY Prescribed by: BRITTON BEYER on 08/14/182356 Patient Home Medication List Home Medication List Reviewed: Yes OB - History Hx of Present Care: Yes Ultrasounds: Normal mid trimester US Obstetrical Complications: None Medical Complications: None Patient Past Medical History n/a Social History/Family History HIV/AIDS: No Sexually Transmitted Disease: No 2nd Hand Smoke Exposure: No Immunizations Hepatitis A: No Hepatitis B: Yes Date of Influenza Vaccine: May 26, 2018 OB - Admission Exam Physical Exam HEENT: NCAT Heart: Rhythm Normal Lungs: Clear Abdomen: Gravid Extremities: Normal Reflexes: Normal Cervical Dilatation: 5cm Effacement: 75% Station: -1 Membranes: Intact Heart Rate: 130's Accelerations: Accelerations Present Decelerations: No Decelerations Short Term Variability: Present Clerk Of Scales Variability: Average (6-25) Contractions on Admission: < 5 Minutes Apart Intensity: Moderate OB - Assessment/Plan/Diagnosis Assessment Assessment: active labor Admission Dx 29 yo @ 37.1 weeks Active labor GBS neg Admission Status: Inpatient Order (span 2 midnights) Reason for Inpatient Admission: Active labor at term Plan Plan: Expectant Management BRITTON BEYER DO Nov 12, 2019 14:28
[2019-11-12] MEDS: D5 LR IV SOLUTION 1,000 ML IV SCH ×2 (14:45→20:47)
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
[2019-11-12 15:08] LABS: BASOPHILS % (AUTO) 0 % (0-10); EOSINOPHILS % (AUTO) 0 % (0-10); HEMATOCRIT 36 % (35-52); HEMOGLOBIN 12.3 G/DL (11.5-16.0); LYMPHOCYTES # (AUTO) 1.8 X 10^3 (1.0-4.0); LYMPHOCYTES % (AUTO) 18 % (12-44); MEAN CORPUSCULAR HEMOGLOBIN 28 PG (25-34); MEAN CORPUSCULAR HGB CONC 34 G/DL (32-36); MEAN CORPUSCULAR VOLUME 82 FL (80-99); MEAN PLATELET VOLUME 9.2 FL (7.4-10.4); MONOCYTES # (AUTO) 0.6 X 10^3 (0.0-1.0); MONOCYTES % (AUTO) 6 % (0-12); NEUTROPHILS # (AUTO) 7.4 X 10^3 (1.8-7.8); NEUTROPHILS % (AUTO) 76 % (42-75); PLATELET COUNT 226 10^3/uL (130-400); RED CELL DISTRIBUTION WIDTH 14.2 % (10.0-14.5); WHITE BLOOD COUNT 9.8 10^3/uL (4.3-11.0)
[2019-11-12] MEDS ORDERED: DOXY1TAB6 PO (15:23)
[2019-11-12] MEDS ORDERED: fentaNYL 2 mcg/ml BUPIVA 0.125 100 ML ONE (15:43)
--- NOTE | 2019-11-12 15:44 | NUR ---
Antonio Doyle [employer]PER[employer] notified of request for epidural. 1633 Antonio at bedside preparing for epidural.
[2019-11-12] MEDS ORDERED: BUPIVACAINE 0.25% 30 ML (SENSORCAINE) VIAL ONE (16:00)
[2019-11-12] MEDS ORDERED: fentaNYL INJECTION 100 MCG/2 ML AMP ONE (16:00)
[2019-11-12] MEDS ORDERED: LACTATED RINGERS 1,000 ML IV ONE (16:36)
[2019-11-12] MEDS ORDERED: fentaNYL 2 mcg/ml BUPIVA 0.125 100 ML IV SCH (16:36)
[2019-11-12] MEDS ORDERED: CATHETER FLUSH 10 ML SYR IV PRN (16:45)
[2019-11-12] MEDS ORDERED: EPIDURAL (fentaNYL 2 MCG/ML BUPIVA 0.125%)100 ML BAG EPI SCH (16:45)
[2019-11-12] MEDS ORDERED: NALOXONE 0.4 MG/ML 1 ML (NARCAN) VIAL IV PRN (16:45)
[2019-11-12] MEDS ORDERED: OXYTOCIN PRE-MIX DRIP 500 ML IV ONE (18:14)
--- NOTE | 2019-11-12 18:14 | NUR ---
Dr Carter called in to inquire about [place] - pt comfortable but irregular contractions. Will follow mikaela land.
[2019-11-12] MEDS ORDERED: OXYTOCIN PRE-MIX DRIP 500 ML IV SCH ×2 (18:19→22:30)
[2019-11-12] MEDS ORDERED: LIDOCAINE/EPI 2% 1:200,00 (XYLOCAINE) 20 ML VIAL ONE (21:33)
--- NOTE | 2019-11-12 21:35 | NUR ---
Dr. Carter called and informed that pt. was starting to feel pressure. SVE shows pt 9cm and 0 station. states he will be out.
--- NOTE | 2019-11-12 21:59 | NUR ---
2158: Delivery of viable male . Placed on mother's chest. Dried, warmed, and stimulated. Pitocin turned off at this time. 2205: Pt. remains in stirrups for repair. 2207: Placenta delivered. Pitocin wide open. 2214: Pericare done and pt out of stirrups. Fundus massaged. Fundus 2 under umbilicus, firm, and minimal bleeding noted. No clots expressed. 2220: Epidural turned off. 2230: Fundus massaged. Fundus 2 under umbilicus, firm, and minimal bleeding noted. No clots expressed. 2245: Fundus massaged. Fundus 2 under umbilicus, firm, and minimal bleeding noted. No clots expressed. 2300: Fundus massaged. Fundus 2 under umbilicus, firm, and moderate bleeding noted. No clots expressed. 2315: Fundus massaged. Fundus 2 under umbilicus, firm, and moderate bleeding noted. No clots expressed.
[2019-11-12] MEDS ORDERED: CATHETER FLUSH 10 ML SYR IV SCH (22:00)
[2019-11-12] MEDS ORDERED: WITCH HAZEL(TUCKS) 40 EA JAR TOP PRN (22:30)
[2019-11-12] MEDS ORDERED: TETANUS,DIPTH,PERTUSS P/F (BOOSTRIX) 0.5 ML VIAL IM ONE (22:30)
[2019-11-12] MEDS ORDERED: HYDROcodone/APAP 5 MG/325 MG (LORTAB) TAB PO PRN (22:30)
[2019-11-12] MEDS ORDERED: MEASLES,MUMPS,RUBELLA 1 EA INJ SQ ONE (22:30)
[2019-11-12] MEDS ORDERED: BENZOCAINE/MENTHOL (DERMOPLAST) 60 ML CAN TP PRN (22:30)
--- NOTE | 2019-11-12 22:37 | OB Labor & Delivery Record ---
L&D History Date of Service Date of Service: Nov 12, 2019 History Expected Date of Delivery: December 02, 2019 Gestational Age in Weeks: 37 Hx : 2 Hx Para: 1 Complications Events: Routine care Operative Indications (Cesarea: N/A-Vaginal Delivery Intrapartal Events: None L&D Stage1 Stage One Onset of Labor - Date: Nov 12, 2019 Monitors and Tracing Monitor Mode: External Heart Rate: 130 Station: -1 Vital Signs VS - Last 72 Hours, by Label 11/12/19 11/12/19 11/12/19 11/12/19 14:30 15:00 16:10 16:21 Temp 36.9 36.9 37.1 Pulse 97 97 105 91 Resp 16 16 B/P (MAP) 115/74 (88) 114/75 (88) 114/70 (85) Pulse Ox 97 97 100 99 O2 Delivery Room Air Room Air Room Air Room Air 11/12/19 11/12/19 11/12/19 11/12/19 16:24 16:30 16:33 16:37 Pulse 105 92 103 93 B/P (MAP) 116/69 (85) 112/67 (82) 101/58 (72) 112/61 (78) Pulse Ox 98 98 98 98 O2 Delivery Room Air Room Air Room Air Room Air 11/12/19 11/12/19 11/12/19 11/12/19 16:43 16:49 16:53 17:00 Pulse 96 99 116 110 Resp 16 B/P (MAP) 116/62 (80) 108/66 (80) 92/54 (67) 115/69 (84) Pulse Ox 98 97 98 O2 Delivery Room Air Room Air 11/12/19 11/12/19 11/12/19 11/12/19 17:05 17:15 17:20 17:23 Pulse 92 85 87 91 Resp 16 B/P (MAP) 113/80 (91) 108/72 (84) 109/75 (86) 109/74 (86) Pulse Ox 99 98 98 98 11/12/19 11/12/19 11/12/19 11/12/19 17:30 17:33 17:45 18:00 Temp 37.4 Pulse 85 87 84 88 B/P (MAP) 105/70 (82) 110/71 (84) 107/71 (83) 91/60 (70) Pulse Ox 98 99 99 11/12/19 11/12/19 11/12/19 11/12/19 18:15 18:30 18:45 19:15 Temp 36.5 Pulse 93 93 92 84 Resp 16 18 B/P (MAP) 94/64 (74) 93/61 (72) 94/64 (74) 102/71 (81) O2 Delivery Room Air Room Air Room Air Room Air 11/12/19 11/12/19 11/12/19 11/12/19 19:30 19:45 20:00 20:15 Pulse 87 94 96 93 B/P (MAP) 104/60 (75) 101/69 (80) 100/67 (78) 108/66 (80) O2 Delivery Room Air Room Air Room Air Room Air 11/12/19 11/12/19 11/12/19 11/12/19 20:30 20:45 21:00 21:15 Temp 36.2 Pulse 85 74 82 93 B/P (MAP) 102/65 (77) 108/67 (81) 111/72 (85) 108/65 (79) O2 Delivery Room Air Room Air Room Air Room Air 11/12/19 21:30 Pulse 87 B/P (MAP) 110/73 (85) O2 Delivery Room Air Rupture of Membranes Spontaneous Ruture of Membrane: No Amniotic Membrane Rupture Time: 1635 Amniotic Membrane Fluid Desc.: Clear Vaginal Bleeding Description: Normal Show Induction/Anesthesia Epidural Cath Placement - Time: 1624 Progress/Notes Patient admitted in active labor5-6 cm, epidural requested and obtained after admission. Labor contraction pattern noted as dysfunction, pitocin augmentation was started at low dose and reached max dose of 4 mu min. Progressed to complete and +1 station L&D Stage2 Stage Two Stage II Date: Nov 12, 2019 Monitors and Tracing Monitor Mode: External Heart Rate: 130 Monitor Accelerations: Uniform Monitor Decelerations: Variable Animal Nutritionist Variability: Average (6-10) Short Term Variability: Present Position: Right Occiput Anterior Presentation: Vertex Cord Descript/Complications Cord Vessel Description: 3 Vessels Complications nuchal x 1 Delivery Type Delivery Method: Spontaneous Vaginal Anterior Shoulder: Right Episiotomy/Perineal Laceration Laceraction(s)/Extensions: Yes Episiotomy Description: Midline (midline episiotomy performed when periurethral tearing and bleeding was noted) Sutures Used: Vicryl Degree (describe repair) bilateral periurethral tears and midline episiotomy repaired using 3-0 rapide and 2-0 vicryl suture in usual fashion Condition of Delivery 1 minute Comment: 8 5 minute Comment: 9 Notes Live male infant weight 7lbs 5 oz Condition of Infant Condition of : Living Exam: No Observed Abnormalities Resuscitation Resuscitation: N/A - Spontaneous Resp L&D Stage3 Stage Three Stage III Date: Nov 12, 2019 Pictocin Pitocin Administration mu/min: 4 Pitocin ml/hr: 4 Pitocin Administration Comment: 30 mu wide open at delivery of placenta Placenta Delivery Placenta Delivery: Spontaneous Delivery Summary Summary Estimated blood loss (mL): 350 Attending at delivery: Britton Beyer DO Condition of Delivery Examined: Cervix Examined, Uterus Explored Post Hemorrhage: No Condition of Mother stable Condition of Infant (s) stable BRITTON BEYER DO Nov 12, 2019 22:37
[2019-11-12] MEDS: IBUPROFEN 600 MG (MOTRIN) TAB PO SCH (22:51)
--- NOTE | 2019-11-12 23:45 | NUR ---
2345: Fundus massaged. Fundus firm and one under umbilicus. Minimal bleeding noted. No clots expressed. Pt. still cannot lift right leg off of bed. 0015: Fundus massaged. Fundus firm and one under umbilicus. Minimal bleeding noted. No clots expressed. Pt. still cannot lift right leg off of bed. sleeping on mom's chest. Pt informed that I will check back in the next thirty minutes or so.
[2019-11-13] VITALS (11 sets, daily range): BP systolic 99–114; BP diastolic 62–78
--- NOTE | 2019-11-13 01:45 | NUR ---
Pt. states that she thinks that she can walk to the bathroom. Pt. sat up on side of bed. When nurse tried to get pt up to walk to the bathroom, pt still cannot bear weight on right leg. Pt placed directly in wheelchair and moved to room. Pt does not feel the need to void at this moment.
--- NOTE | 2019-11-13 03:30 | NUR ---
Pt. up to bathroom. Voided large amount of clear urine. Dermoplast and Tucks pads used. Clean underwear, pad, and gown put on. Pt helped with pericare. No problems noted.
[2019-11-13] MEDS: IBUPROFEN 600 MG (MOTRIN) TAB PO SCH ×4 (05:03→23:57)
[2019-11-13 05:32] LABS: BASOPHILS % (AUTO) 0 % (0-10); EOSINOPHILS % (AUTO) 0 % (0-10); HEMATOCRIT 31 % (35-52); HEMOGLOBIN 10.4 G/DL (11.5-16.0); LYMPHOCYTES # (AUTO) 1.9 X 10^3 (1.0-4.0); LYMPHOCYTES % (AUTO) 15 % (12-44); MEAN CORPUSCULAR HEMOGLOBIN 28 PG (25-34); MEAN CORPUSCULAR HGB CONC 33 G/DL (32-36); MEAN CORPUSCULAR VOLUME 84 FL (80-99); MONOCYTES # (AUTO) 0.9 X 10^3 (0.0-1.0); MONOCYTES % (AUTO) 7 % (0-12); NEUTROPHILS # (AUTO) 9.7 X 10^3 (1.8-7.8); NEUTROPHILS % (AUTO) 78 % (42-75); PLATELET COUNT 212 10^3/uL (130-400); RED CELL DISTRIBUTION WIDTH 13.9 % (10.0-14.5); WHITE BLOOD COUNT 12.5 10^3/uL (4.3-11.0)
[2019-11-13] MEDS ORDERED: CATHETER FLUSH 10 ML SYR IV SCH (06:00)
[2019-11-13] MEDS ORDERED: IBUP-844 PO (07:30)
[2019-11-13] MEDS ORDERED: HYDR-83 PO (07:30)
[2019-11-13] MEDS ORDERED: DCS100C PO (07:30)
[2019-11-13] MEDS ORDERED: FERR325T18 PO (07:30)
[2019-11-13] MEDS ORDERED: BENZ78AE2 TP (07:30)
--- NOTE | 2019-11-13 07:32 | Discharge Inst-Women's Service ---
Discharge Inst-Women's Serv Depart Medication/Instructions New, Converted or Re-Newed RX: RX on Chart Final Diagnosis PPD 2 NVD Problems Reviewed?: Yes Consults/Follow Up Additional Follow Up: Yes Orders/Referrals Dr. Beyer in 6 weeks Activity Activity: Activity as Tolerated Driving Instructions: No Driving for 1 Week NO SMOKING: NO SMOKING Nothing Inside Vagina: No Douching, No [employer], No Tampons Diet Discharge Diet: No Restrictions Symptoms to Report to : Bleeding Excessive, Pain Increased, Fever Over 101 Degrees F, Vaginal Bleeding Increase, Questions/Concerns For Any Problems or Questions: Contact Your Physician BRITTON BEYER DO November 13, 2019 07:32
--- NOTE | 2019-11-13 07:36 | Postpartum Progress Note ---
Note Note Day # 1 Subjective: Patient is without complaints. Ambulating, voiding. Tolerating a regular diet without nausea or vomiting. Normal lochia. Pain is well controlled with oral pain medications. Objective: Physical Exam: General - Alert and oriented, no apparent distress Abdomen - Soft, appropriately tender to palpation, non-distended, fundus firm at umbilicus Extremities - no edema, negative Carl's bilaterally Assessment: PPD 1 NVD Acute blood loss anemia Plan: Routine care. Encourage breast feeding. Encourage ambulation. Ferrous sulfate supplementation. Plan for discharge tomorrow Vitals - Labs Vital Signs - I&O Vital Signs Date Time Temp Pulse Resp B/P (MAP) Pulse Ox O2 Delivery O2 Flow Rate FiO2 11/13/19 05:03 36.4 72 16 107/67 (80) 97 Room Air 11/13/19 01:30 36.5 96 114/69 (84) Room Air 11/13/19 01:15 84 106/63 (77) Room Air 11/13/19 01:00 84 102/62 (75) Room Air 11/13/19 00:45 93 109/66 (80) Room Air 11/13/19 00:30 96 108/67 (81) Room Air 11/13/19 00:15 36.9 95 104/66 (79) Room Air 11/13/19 00:00 88 99/62 (74) Room Air 11/12/19 23:45 82 102/63 (76) Room Air 11/12/19 23:30 93 110/66 (81) Room Air 11/12/19 23:15 37.3 93 103/61 (75) Room Air 11/12/19 23:00 93 108/61 (77) Room Air 11/12/19 22:45 37.2 101 121/68 (85) Room Air 11/12/19 22:30 37.3 93 131/70 (90) Room Air 11/12/19 22:15 94 117/65 (82) Room Air 11/12/19 22:00 90 111/72 (85) Room Air 11/12/19 21:45 92 117/69 (85) Room Air 11/12/19 21:30 87 110/73 (85) Room Air 11/12/19 21:15 93 108/65 (79) Room Air 11/12/19 21:00 82 111/72 (85) Room Air 11/12/19 20:45 74 108/67 (81) Room Air 11/12/19 20:30 36.2 85 102/65 (77) Room Air 11/12/19 20:15 93 108/66 (80) Room Air 11/12/19 20:00 96 100/67 (78) Room Air 11/12/19 19:45 94 101/69 (80) Room Air 11/12/19 19:30 87 104/60 (75) Room Air 11/12/19 19:15 36.5 84 18 102/71 (81) Room Air 11/12/19 18:45 92 94/64 (74) Room Air 11/12/19 18:30 93 93/61 (72) Room Air 11/12/19 18:15 93 16 94/64 (74) Room Air 11/12/19 18:00 37.4 88 91/60 (70) 11/12/19 17:45 84 107/71 (83) 99 11/12/19 17:33 87 110/71 (84) 99 11/12/19 17:30 85 105/70 (82) 98 11/12/19 17:23 91 109/74 (86) 98 11/12/19 17:20 87 16 109/75 (86) 98 11/12/19 17:15 85 108/72 (84) 98 11/12/19 17:05 92 113/80 (91) 99 11/12/19 17:00 110 115/69 (84) 11/12/19 16:53 116 92/54 (67) 98 11/12/19 16:49 99 108/66 (80) 97 Room Air 11/12/19 16:43 96 16 116/62 (80) 98 Room Air 11/12/19 16:37 93 112/61 (78) 98 Room Air 11/12/19 16:33 103 101/58 (72) 98 Room Air 11/12/19 16:30 92 112/67 (82) 98 Room Air 11/12/19 16:24 105 116/69 (85) 98 Room Air 11/12/19 16:21 91 114/70 (85) 99 Room Air 11/12/19 16:10 37.1 105 114/75 (88) 100 Room Air 11/12/19 15:00 36.9 97 16 97 Room Air 11/12/19 14:30 36.9 97 16 115/74 (88) 97 Room Air I & O 11/13/19 07:00 Intake Total 3000 ml Balance 3000 ml Labs Laboratory Tests 11/12/19 14:40: White Blood Count 9.8, Red Blood Count 4.41, Hemoglobin 12.3, Hematocrit 36, Mean Corpuscular Volume 82, Mean Corpuscular Hemoglobin 28, Mean Corpuscular Hemoglobin Concent 34, Red Cell Distribution Width 14.2, Platelet Count 226, Mean Platelet Volume 9.2, Neutrophils (%) (Auto) 76H, Lymphocytes (%) (Auto) 18, Monocytes (%) (Auto) 6, Eosinophils (%) (Auto) 0, Basophils (%) (Auto) 0, Neutrophils # (Auto) 7.4, Lymphocytes # (Auto) 1.8, Monocytes # (Auto) 0.6, Eosinophils # (Auto) 0.0, Basophils # (Auto) 0.0 11/13/19 05:22: White Blood Count 12.5H, Red Blood Count 3.74L, Hemoglobin 10.4L, Hematocrit 31L , Mean Corpuscular Volume 84, Mean Corpuscular Hemoglobin 28, Mean Corpuscular Hemoglobin Concent 33, Red Cell Distribution Width 13.9, Platelet Count 212, Mean Platelet Volume 9.0, Neutrophils (%) (Auto) 78H, Lymphocytes (%) (Auto) 15, Monocytes (%) (Auto) 7, Eosinophils (%) (Auto) 0, Basophils (%) (Auto) 0, Neutrophils # (Auto) 9.7H, Lymphocytes # (Auto) 1.9, Monocytes # (Auto) 0.9, Eosinophils # (Auto) 0.0, Basophils # (Auto) 0.0 BRITTON BEYER DO November 13, 2019 07:36
[2019-11-13] MEDS: DOCUSATE SODIUM 100 MG (COLACE) CAP PO SCH ×2 (08:20→21:53)
[2019-11-13] MEDS: PRENATAL VITAMIN 1 EA TAB PO SCH (08:20)
[2019-11-13] MEDS: FERROUS SULF 325 MG (IRON) TAB PO SCH (08:20)
--- NOTE | 2019-11-13 11:51 | Anesthesia-Regional Post-Op ---
Regional Patient Condition Mental Status: Alert, Oriented x3 Circulation: Same as Pre-Op Headache: Absent Sensation: Full Recovery Motor Block: Absent Post Op Complications Complications None Follow Up Care/Instructions Patient Instructions None needed. Anesthesia/Patient Condition Patient is doing well, no complaints, stable vital signs, no apparent adverse anesthesia problems. No complications reported per nursing. JACKIE GODWIN CRNA November 13, 2019 11:51
[2019-11-14 02:00] VITALS: BP 95/55
--- NOTE | 2019-11-14 02:00 | NUR ---
pt awake laying in bed, FOB holding infant. Pt denies needs.
[2019-11-14] MEDS: IBUPROFEN 600 MG (MOTRIN) TAB PO SCH ×2 (05:27→11:19)
--- NOTE | 2019-11-14 07:45 | Postpartum Progress Note ---
Note Note Day # 2 Subjective: Patient is without complaints. Ambulating, voiding. Tolerating a regular diet without nausea or vomiting. Normal lochia. Pain is well controlled with oral pain medications. Objective: Physical Exam: General - Alert and oriented, no apparent distress Abdomen - Soft, appropriately tender to palpation, non-distended, fundus firm at umbilicus Extremities - no edema, negative Carl's bilaterally Assessment: PPD 2 NVD Acute blood loss anemia Plan: Routine care. Encourage breast feeding. Encourage ambulation. Ferrous sulfate supplementation. Plan for discharge today Vitals - Labs Vital Signs - I&O Vital Signs Date Time Temp Pulse Resp B/P (MAP) Pulse Ox O2 Delivery O2 Flow Rate FiO2 11/14/19 02:00 36.5 67 16 95/55 (68) Room Air 11/13/19 20:10 36.5 79 18 110/71 (84) Room Air 11/13/19 13:20 37.0 72 16 108/76 (87) 100 Room Air 11/13/19 08:15 36.7 78 16 102/78 (86) 97 Room Air BRITTON BEYER DO November 14, 2019 07:45
[2019-11-14 11:18] VITALS: BP 108/55
[2019-11-14] MEDS: PRENATAL VITAMIN 1 EA TAB PO SCH (11:19)
[2019-11-14] MEDS: DOCUSATE SODIUM 100 MG (COLACE) CAP PO SCH (11:19)
[2019-11-14] MEDS: FERROUS SULF 325 MG (IRON) TAB PO SCH (11:19)
--- NOTE | 2019-11-14 12:35 | NUR ---
Discharge instructions explained, signed and copy to patient. pt verbalized understanding of instructions and denied questions. prescriptions given.
[2019-11-14 13:40] VITALS: BP 108/55
--- NOTE | 2019-11-14 13:40 | NUR ---
Discharged to home with belongings in hand. Downstairs ambulates self and accompanied by s.o. and staff member. To private vehicle.
== END 2019-11-14 13:40 | disposition home or self-care (01) | DRG 806 ==
LOC: LDRP 14:09
PROVIDERS: ADMIT Obstetrics & Gynecology; ATTEND Obstetrics & Gynecology
PROC: 10E0XZZ Delivery of Products of Conception, External Approach (ICD-10-PCS; principal; 2019-11-12)
PROC: 0W8NXZZ Division of Female Perineum, External Approach (ICD-10-PCS; 2019-11-12)
PROC: 0UQMXZZ Repair Vulva, External Approach (ICD-10-PCS; 2019-11-12)
DX: O99.214 Obesity complicating childbirth (principal); O90.81 Anemia of the puerperium; D62 Acute posthemorrhagic anemia; Z37.0 Single live birth; O71.82 Other specified trauma to perineum and vulva; O69.81X0 Labor and delivery complicated by cord around neck, without compression, not applicable or unspecified; E66.9 Obesity, unspecified; Z3A.37 37 weeks gestation of pregnancy
CPT/HCPCS: 36415; 85025; 86850; 86900; 86901

== ENCOUNTER → 2021-08-08 | Outpatient (CLI) | payer BC ==
[~2021-08-08] MED LIST changes: +BENZ78AE5 TP; +DOCU-239 PO; +DOXY1TAB6 PO
--- NOTE | 2021-08-08 17:16 | Diagnostic Imaging Report ---
INDICATION: survey. TECHNIQUE: Multiple real-time grayscale images were obtained over the gravid uterus. COMPARISON: None FINDINGS: A single live fetus in a cephalic presentation. heart rate was recorded 143 bpm. Placenta is posterior. Amniotic fluid volume is normal. Cervical length is 5.9 cm. survey demonstrates some mild prominence of the renal collecting systems bilaterally. bladder and stomach are unremarkable. The brain is unremarkable. There is a 4 chamber heart. There is a three-vessel cord. Cord insertion is somewhat limited due to position. spine is unremarkable. Biometrical measurements are as follows: Biparietal 4.46 cm, age 19 weeks 4 days. Head circumference 17.96 cm, age 20 weeks 3 days. Abdominal circumference 14.61 cm, age 20 weeks 0 days. Femur length 3.19 cm, age 20 weeks 2 days. Sonographic estimate age: 20 weeks 0 days. Sonographic estimated date of delivery: 12/26/21. Estimated Weight: 323 gm (+/- 47 gm). LMP percentile: 42%. heart rate: 143 beats per minute. number: 1 of 1. IMPRESSION: 1. Single IUP 20 weeks 0 days gestational age. Estimated date of confinement sonographically is 12/26/2021. 2. survey is unremarkable although cord insertion was somewhat limited in evaluation due to position. In addition, both kidneys did show some prominence of the renal collecting systems. Followup to be performed. Dictated by: Dictated on workstation # [id number]
== END ==
LOC: RAD 15:15
PROVIDERS: ATTEND Obstetrics & Gynecology
DX: Z34.02 Encounter for supervision of normal first pregnancy, second trimester (principal); Z3A.20 20 weeks gestation of pregnancy
CPT/HCPCS: 76805

== ENCOUNTER 2021-12-13 09:40 | Inpatient (IN) | payer BC ==
[2021-12-13] VITALS (47 sets, daily range): BP systolic 104–134; BP diastolic 53–79
[~2021-12-13] VITALS: Ht 157.5 cm; Wt 90.7 kg
[2021-12-13 10:06] LABS: BILIRUBIN,URINE NEGATIVE (NEGATIVE); CLARITY,URINE CLEAR; COLOR,URINE YELLOW; GLUCOSE, URINE (UA) NEGATIVE (NEGATIVE); KETONES,URINE NEGATIVE (NEGATIVE); LEUKOCYTE ESTERASE ,URINE 1+ (NEGATIVE); NITRITE,URINE NEGATIVE (NEGATIVE); PROTEIN,URINE NEGATIVE (NEGATIVE)
[2021-12-13 10:14] LABS: BACTERIA,URINE FEW /HPF; RBC,URINE RARE /HPF
[2021-12-13] MEDS ORDERED: MINERAL OIL 30 ML TOP PRN (11:00)
[2021-12-13] MEDS: D5 LR IV SOLUTION 1,000 ML IV SCH ×2 (11:10→19:17)
[2021-12-13 11:32] LABS: BASOPHILS % (AUTO) 0 % (0-10); EOSINOPHILS % (AUTO) 0 % (0-10); HEMATOCRIT 34 % (35-52); HEMOGLOBIN 11.4 g/dL (11.5-16.0); LYMPHOCYTES # (AUTO) 1.8 10^3/uL (1.0-4.0); LYMPHOCYTES % (AUTO) 20 % (12-44); MEAN CORPUSCULAR HEMOGLOBIN 28 pg (25-34); MEAN CORPUSCULAR HGB CONC 34 g/dL (32-36); MEAN CORPUSCULAR VOLUME 84 fL (80-99); MEAN PLATELET VOLUME 9.6 fL (9.0-12.2); MONOCYTES # (AUTO) 0.6 10^3/uL (0.0-1.0); MONOCYTES % (AUTO) 6 % (0-12); NEUTROPHILS # (AUTO) 6.6 10^3/uL (1.8-7.8); NEUTROPHILS % (AUTO) 73 % (42-75); PLATELET COUNT 173 10^3/uL (130-400); WHITE BLOOD COUNT 9.1 10^3/uL (4.3-11.0)
[2021-12-13] MEDS ORDERED: BUPIVACAINE 0.25% 10 ML (SENSORCAINE) VIAL ONE (12:58)
[2021-12-13] MEDS ORDERED: fentaNYL INJ 100 MCG/2 ML AMP ONE (12:58)
--- NOTE | 2021-12-13 13:00 | History & Physical-OB ---
OB - Chief Complaint & HPI Date/Time Date of Admission: Date of Admission: Dec 13, 2021 at 9:52 am Date seen by a Provider: Dec 13, 2021 Time Seen by a Provider: 12:30 Chief Complaint/History OB-Reason for Admission/Chief: Onset of Labor Hx : 3 Hx Para: 2 Expected Date of Delivery: Dec 26, 2021 Gestational Age in Weeks: 38 Gestational Age in Days: 1 Admission Nurse Assessment Rev: Yes History of Labs A pos Antibody neg RI RPR NR HBsAg NR HIV NR GC neg GBS neg Allergies and Home Medications Allergies Coded Allergies: No Known Drug Allergies (Unverified , 07/24/18) Patient Home Medication List Home Medication List Reviewed: Yes Benzocaine/Menthol (Dermoplast Pain Relieving [place]) 78 Gm Aerosol, 56 ML TP UD PRN for PAIN- SEE INSTRUCTIONS Prescribed by: BRITTON BEYER on 11/13/19729 Docusate Sodium (Dok) 100 Mg Capsule, 100 MG PO BID PRN for CONSTIPATION-1ST LINE Prescribed by: BRITTON BEYER on 11/13/19729 Doxylamine Succinate (Unisom) 25 Mg Tablet, 25 MG PO HS PRN for sl, (Reported) Entered as Reported by: JOSSUE CARTER on 07/25/18 0354 Ferrous Sulfate (Ferrous Sulfate) 325 Mg Tablet, 325 MG PO DAILY Prescribed by: BRITTON BEYER on 11/13/19729 Hydrocodone/Acetaminophen (Hydrocodone-Acetamin 5-325 mg) 1 Each Tablet, 1 TAB PO Q4H PRN for PAIN-MODERATE (5-7) Prescribed by: BRITTON BEYER on 11/13/19729 Ibuprofen (Ibu) 600 Mg Tablet, 600 MG PO Q6HR Prescribed by: BRITTON BEYER on 11/13/19729 OB - History Hx of Present Care: Yes Ultrasounds: Normal mid trimester US Obstetrical Complications: None Medical Complications: None Patient Past Medical History n/a Social History/Family History 2nd Hand Smoke Exposure: No Immunizations Hepatitis A: No Hepatitis B: Yes OB - Admission Exam Physical Exam HEENT: NCAT Heart: Rhythm Normal Lungs: Clear Abdomen: Gravid Extremities: Normal Reflexes: Normal Cervical Dilatation: 5cm Effacement: 75% Station: -1 Membranes: Intact Heart Rate: 130's Accelerations: Accelerations Present Decelerations: No Decelerations Short Term Variability: Present Acquisition Analyst Variability: Average (6-25) Contractions on Admission: < 5 Minutes Apart Intensity: Firm Labs Laboratory Tests Test 12/13/21 09:55 12/13/21 11:10 Range/Units Urine Color YELLOW Urine Clarity CLEAR Urine pH 7.0 5-9 Urine Specific [place] 1.010 L 1.016-1.022 Urine Protein NEGATIVE NEGATIVE Urine Glucose (UA) NEGATIVE NEGATIVE Urine Ketones NEGATIVE NEGATIVE Urine Nitrite NEGATIVE NEGATIVE Urine Bilirubin NEGATIVE NEGATIVE Urine Urobilinogen 0.2 < = 1.0 MG/DL Urine Leukocyte Esterase 1+ H NEGATIVE Urine RBC (Auto) TRACE-I H NEGATIVE Urine RBC RARE /HPF Urine WBC 2-5 /HPF Urine Squamous Epithelial Cells 5-10 /HPF Urine Crystals NONE /LPF Urine Bacteria FEW H /HPF Urine Casts NONE /LPF Urine Mucus NEGATIVE /LPF Urine Culture Indicated CULTURE PENDING White Blood Count 9.1 4.3-11.0 10^3/uL Red Blood Count 4.06 3.80-5.11 10^6/uL Hemoglobin 11.4 L 11.5-16.0 g/dL Hematocrit 34 L 35-52 % Mean Corpuscular Volume 84 80-99 fL Mean Corpuscular Hemoglobin 28 25-34 pg Mean Corpuscular Hemoglobin Concent 34 32-36 g/dL Red Cell Distribution Width 13.5 10.0-14.5 % Platelet Count 173 130-400 10^3/uL Mean Platelet Volume 9.6 9.0-12.2 fL Immature Granulocyte % (Auto) 1 % Neutrophils (%) (Auto) 73 42-75 % Lymphocytes (%) (Auto) 20 12-44 % Monocytes (%) (Auto) 6 0-12 % Eosinophils (%) (Auto) 0 0-10 % Basophils (%) (Auto) 0 0-10 % Neutrophils # (Auto) 6.6 1.8-7.8 10^3/uL Lymphocytes # (Auto) 1.8 1.0-4.0 10^3/uL Monocytes # (Auto) 0.6 0.0-1.0 10^3/uL Eosinophils # (Auto) 0.0 0.0-0.3 10^3/uL Basophils # (Auto) 0.0 0.0-0.1 10^3/uL Immature Granulocyte # (Auto) 0.1 0.0-0.1 10^3/uL OB - Assessment/Plan/Diagnosis Assessment Assessment: active labor Admission Dx 31 yo @ 38.1 weeks Active labor GBS neg Admission Status: Inpatient Order (span 2 midnights) Reason for Inpatient Admission: Active labor at term Plan Plan: Expectant Management (Patient requesting epidural, may consider pitocin augmentation after placement. AROM to be done.) BRITTON BEYER DO Dec 13, 2021 1:00 pm
[2021-12-13] MEDS ORDERED: fentaNYL 2 mcg/ml BUPIVA 0.125 100 ML ONE (13:03)
[2021-12-13] MEDS ORDERED: CATHETER FLUSH 10 ML SYR IV SCH ×2 (14:00→22:00)
[2021-12-13] MEDS ORDERED: LIDOCAINE/EPI 2% 1:200,00 (XYLOCAINE) 10 ML VIAL ONE (14:31)
[2021-12-13] MEDS ORDERED: OXYTOCIN PRE-MIX DRIP 500 ML IV ONE (14:31)
[2021-12-13] MEDS ORDERED: ONDANSETRON 4 MG/2 ML (SDV) Z0FRAN IV PRN (14:45)
[2021-12-13] MEDS ORDERED: diphenhydrAMINE 50 MG/ML INJ (BENADRYL) IV PRN (14:45)
[2021-12-13] MEDS ORDERED: EPIDURAL (fentaNYL 2 MCG/ML BUPIVA 0.125%)100 ML BAG EPI PRN (14:45)
[2021-12-13] MEDS ORDERED: LACTATED RINGERS 1,000 ML IV SCH (14:45)
[2021-12-13] MEDS ORDERED: METOCLOPRAMIDE INJ 10 MG/2 ML (REGLAN) IV PRN (14:45)
[2021-12-13] MEDS ORDERED: NALOXONE 0.4 MG/ML 1 ML (NARCAN) VIAL IV PRN ×3 (14:45→21:00)
[2021-12-13] MEDS ORDERED: OXYTOCIN PRE-MIX DRIP 500 ML IV SCH ×2 (15:45→21:00)
--- NOTE | 2021-12-13 20:54 | OB Labor & Delivery Record ---
L&D History Date of Service Date of Service: Dec 13, 2021 History Expected Date of Delivery: Dec 26, 2021 Gestational Age in Weeks: 38 Hx : 3 Hx Para: 2 Complications Events: Routine care Operative Indications (Cesarea: N/A-Vaginal Delivery Intrapartal Events: None L&D Stage1 Stage One Onset of Labor - Date: Dec 13, 2021 Monitors and Tracing Monitor Mode: External Heart Rate: 125 Station: -2 Short Term Variability: Present Presentation: Vertex Vital Signs VS - Last 72 Hours, by Label 12/13/21 12/13/21 12/13/21 12/13/21 09:40 09:40 11:45 12:15 Temp 36.9 36.9 37.1 Pulse 108 10 105 99 Resp 18 18 20 20 B/P (MAP) 129/77 (94) 125/78 (94) Pulse Ox 98 98 97 99 O2 Delivery Room Air Room Air Room Air Room Air 12/13/21 12/13/21 12/13/21 12/13/21 12:45 13:05 13:08 13:20 Pulse 93 114 107 93 Resp 20 20 20 20 B/P (MAP) 114/78 (90) 119/71 (87) 121/69 (86) 114/69 (84) Pulse Ox 99 99 99 99 O2 Delivery Room Air Room Air Room Air Room Air 12/13/21 12/13/21 12/13/21 12/13/21 13:23 13:26 13:29 13:32 Pulse 93 106 105 108 Resp 20 20 20 20 B/P (MAP) 111/62 (78) 109/63 (78) 117/58 (77) 111/61 (78) Pulse Ox 98 98 98 98 O2 Delivery Room Air Room Air Room Air Room Air 12/13/21 12/13/21 12/13/21 12/13/21 13:35 14:00 14:10 14:30 Pulse 106 112 110 111 Resp 20 20 20 20 B/P (MAP) 126/65 (85) 119/61 (80) 115/61 (79) 118/69 (85) Pulse Ox 98 98 98 98 O2 Delivery Room Air Room Air Room Air Room Air 12/13/21 12/13/21 12/13/21 12/13/21 14:45 15:00 15:15 15:30 Temp 36.6 Pulse 108 126 112 110 Resp 20 20 20 20 B/P (MAP) 117/69 (85) 119/67 (84) 121/71 (88) 126/66 (86) Pulse Ox 98 97 98 98 O2 Delivery Room Air Room Air Room Air Room Air 12/13/21 12/13/21 12/13/21 12/13/21 15:45 16:00 16:15 16:30 Pulse 112 100 109 118 Resp 20 20 20 20 B/P (MAP) 126/68 (87) 117/69 (85) 125/77 (93) 131/78 (95) Pulse Ox 98 97 98 98 O2 Delivery Room Air Room Air Room Air Room Air 12/13/21 12/13/21 12/13/21 12/13/21 16:45 17:00 17:15 17:30 Pulse 103 92 96 Resp 20 20 20 B/P (MAP) 125/78 (94) 107/55 (72) 118/71 (87) O2 Delivery Room Air Room Air Room Air 12/13/21 12/13/21 12/13/21 12/13/21 17:45 18:00 18:15 18:30 Pulse 98 106 106 96 Resp 20 20 20 20 B/P (MAP) 123/79 (94) 114/74 (87) 115/74 (88) 104/63 (77) O2 Delivery Room Air Room Air Room Air Room Air 12/13/21 12/13/21 18:45 19:00 Temp 36.7 Pulse 96 105 Resp 20 18 B/P (MAP) 104/63 (77) 114/66 (82) O2 Delivery Room Air Room Air Rupture of Membranes Spontaneous Ruture of Membrane: No Amniotic Membrane Rupture Time: 1242 Amniotic Membrane Fluid Desc.: Clear Vaginal Bleeding Description: Normal Show Induction/Anesthesia Epidural Cath Placement - Time: 1313 L&D Stage2 Stage Two Stage II Date: Dec 13, 2021 Monitors and Tracing Monitor Mode: External Heart Rate: 125 Monitor Accelerations: Uniform Monitor Decelerations: None Alf Variability: Average (6-10) Short Term Variability: Present Position: Right Occiput Anterior Presentation: Vertex Cord Descript/Complications Cord Vessel Description: 3 Vessels Delivery Type Delivery Method: Spontaneous Vaginal Anterior Shoulder: Left, Right Episiotomy/Perineal Laceration Laceraction(s)/Extensions: Yes Episiotomy Description: Perineal Extension/lac, 2nd degree (2nd degree perineal laceration repaired using 3-0 rapide vicryl in uusal fashion) Condition of Infant Delivery 1 minute Comment: 8 5 minute Comment: 9 Notes Live male weight 8lbs 12 oz. Condition of Condition of : Living Exam: No Observed Abnormalities Resuscitation Resuscitation: N/A - Spontaneous Resp L&D Stage3 Stage Three Stage III Date: Dec 13, 2021 Pictocin Pitocin Administration mu/min: 8 Pitocin ml/hr: 8 Pitocin Administration Comment: 12 mu wide open after delivery of placenta Placenta Delivery Placenta Delivery: Spontaneous Delivery Summary Summary Estimated blood loss (mL): 300 Attending at delivery: Britton Beyer DO Condition of Delivery Examined: Cervix Examined, Uterus Explored Post Hemorrhage: No Condition of Mother stable Condition of (s) stable BRITTON BEYER DO Dec 13, 2021 20:54
[2021-12-13] MEDS ORDERED: WITCH HAZEL(TUCKS) 40 EA JAR TOP PRN (21:00)
[2021-12-13] MEDS ORDERED: HYDROcodone/APAP 5 MG/325 MG (LORTAB) TAB PO PRN (21:00)
[2021-12-13] MEDS ORDERED: DIBUCAINE 1% OINTMENT 30 GM TUBE TOP PRN (21:00)
[2021-12-13] MEDS ORDERED: TETANUS,DIPTH,PERTUSS P/F (BOOSTRIX) 0.5 ML VIAL IM ONE (21:00)
[2021-12-13] MEDS ORDERED: BENZOCAINE/MENTHOL (DERMOPLAST) 56 ML CAN TP PRN (21:00)
[2021-12-13] MEDS ORDERED: MEASLES,MUMPS,RUBELLA 1 EA INJ SQ ONE (21:00)
[2021-12-13] MEDS: DOCUSATE SODIUM 100 MG (COLACE) CAP PO SCH (21:00)
[2021-12-14 01:15] VITALS: BP 123/68
[2021-12-14] MEDS: IBUPROFEN 600 MG (MOTRIN) TAB PO SCH ×3 (01:15→18:04)
[2021-12-14 06:01] LABS: BASOPHILS % (AUTO) 0 % (0-10); EOSINOPHILS % (AUTO) 0 % (0-10); HEMATOCRIT 31 % (35-52); HEMOGLOBIN 10.3 g/dL (11.5-16.0); LYMPHOCYTES # (AUTO) 2.1 10^3/uL (1.0-4.0); LYMPHOCYTES % (AUTO) 17 % (12-44); MEAN CORPUSCULAR HEMOGLOBIN 28 pg (25-34); MEAN CORPUSCULAR HGB CONC 33 g/dL (32-36); MEAN CORPUSCULAR VOLUME 84 fL (80-99); MEAN PLATELET VOLUME 9.5 fL (9.0-12.2); MONOCYTES # (AUTO) 0.8 10^3/uL (0.0-1.0); MONOCYTES % (AUTO) 7 % (0-12); NEUTROPHILS # (AUTO) 8.9 10^3/uL (1.8-7.8); NEUTROPHILS % (AUTO) 75 % (42-75); PLATELET COUNT 158 10^3/uL (130-400); WHITE BLOOD COUNT 11.9 10^3/uL (4.3-11.0)
--- NOTE | 2021-12-14 07:14 | Postpartum Progress Note ---
Note Note Day # 1 Subjective: Patient is without complaints. Ambulating, voiding. Tolerating a regular diet without nausea or vomiting. Normal lochia. Pain is well controlled with oral pain medications. Objective: Physical Exam: General - Alert and oriented, no apparent distress Abdomen - Soft, appropriately tender to palpation, non-distended, fundus firm at umbilicus Extremities - no edema, negative Carl's bilaterally Assessment: PPD 1 NVD Acute blood anemia Plan: Routine care. Encourage breast feeding. Encourage ambulation. Ferrous sulfate supplementation. Plan for discharge tomorrow Vitals - Labs Vital Signs - I&O Vital Signs Date Time Temp Pulse Resp B/P (MAP) Pulse Ox O2 Delivery O2 Flow Rate FiO2 12/14/21 01:15 36.9 89 18 123/68 (86) 99 Room Air 12/13/21 22:40 99 18 112/62 (79) Room Air 12/13/21 22:25 58 18 113/61 (78) Room Air 12/13/21 22:10 89 18 115/65 (82) Room Air 12/13/21 21:55 88 18 121/60 (80) Room Air 12/13/21 21:40 97 18 124/53 (76) Room Air 12/13/21 21:25 88 18 112/59 (76) Room Air 12/13/21 21:10 105 18 130/65 (86) Room Air 12/13/21 20:55 100 18 128/79 (95) Room Air 12/13/21 20:40 96 18 120/75 (90) Room Air 12/13/21 20:25 36.9 123 18 134/68 (90) Room Air 12/13/21 20:15 102 18 116/74 (88) Room Air 12/13/21 20:00 102 18 116/74 (88) Room Air 12/13/21 19:45 101 18 116/70 (85) Room Air 12/13/21 19:30 93 18 115/74 (88) Room Air 12/13/21 19:15 102 18 109/61 (77) Room Air 12/13/21 19:00 36.7 105 18 114/66 (82) Room Air 12/13/21 18:45 96 20 104/63 (77) Room Air 12/13/21 18:30 96 20 104/63 (77) Room Air 12/13/21 18:15 106 20 115/74 (88) Room Air 12/13/21 18:00 106 20 114/74 (87) Room Air 12/13/21 17:45 98 20 123/79 (94) Room Air 12/13/21 17:30 96 20 118/71 (87) Room Air 12/13/21 17:15 92 20 107/55 (72) Room Air 12/13/21 17:00 103 20 125/78 (94) Room Air 12/13/21 16:45 12/13/21 16:30 118 20 131/78 (95) 98 Room Air 12/13/21 16:15 109 20 125/77 (93) 98 Room Air 12/13/21 16:00 100 20 117/69 (85) 97 Room Air 12/13/21 15:45 112 20 126/68 (87) 98 Room Air 12/13/21 15:30 36.6 110 20 126/66 (86) 98 Room Air 12/13/21 15:15 112 20 121/71 (88) 98 Room Air 12/13/21 15:00 126 20 119/67 (84) 97 Room Air 12/13/21 14:45 108 20 117/69 (85) 98 Room Air 12/13/21 14:30 111 20 118/69 (85) 98 Room Air 12/13/21 14:10 110 20 115/61 (79) 98 Room Air 12/13/21 14:00 112 20 119/61 (80) 98 Room Air 12/13/21 13:35 106 20 126/65 (85) 98 Room Air 12/13/21 13:32 108 20 111/61 (78) 98 Room Air 12/13/21 13:29 105 20 117/58 (77) 98 Room Air 12/13/21 13:26 106 20 109/63 (78) 98 Room Air 12/13/21 13:23 93 20 111/62 (78) 98 Room Air 12/13/21 13:20 93 20 114/69 (84) 99 Room Air 12/13/21 13:08 107 20 121/69 (86) 99 Room Air 12/13/21 13:05 114 20 119/71 (87) 99 Room Air 12/13/21 12:45 93 20 114/78 (90) 99 Room Air 12/13/21 12:15 99 20 125/78 (94) 99 Room Air 12/13/21 11:45 37.1 105 20 129/77 (94) 97 Room Air 12/13/21 09:40 36.9 10 18 98 Room Air 12/13/21 09:40 36.9 108 18 98 Room Air I & O 12/14/21 07:00 Intake Total 3299 ml Balance 3299 ml Labs Laboratory Tests 12/13/21 09:55: Urine Color YELLOW, Urine Clarity CLEAR, Urine pH 7.0, Urine Specific [place] 1.010L, Urine Protein NEGATIVE, Urine Glucose (UA) NEGATIVE, Urine Ketones NEGATIVE, Urine Nitrite NEGATIVE, Urine Bilirubin NEGATIVE, Urine Urobilinogen 0.2, Urine Leukocyte Esterase 1+H, Urine RBC (Auto) TRACE-IH, Urine RBC RARE, Urine WBC 2-5, Urine Squamous Epithelial Cells 5-10, Urine Crystals NONE, Urine Bacteria FEWH, Urine Casts NONE, Urine Mucus NEGATIVE, Urine Culture Indicated CULTURE PENDING 12/13/21 11:10: White Blood Count 9.1, Red Blood Count 4.06, Hemoglobin 11.4L, Hematocrit 34L, Mean Corpuscular Volume 84, Mean Corpuscular Hemoglobin 28, Mean Corpuscular Hemoglobin Concent 34, Red Cell Distribution Width 13.5, Platelet Count 173, Mean Platelet Volume 9.6, Immature Granulocyte % (Auto) 1, Neutrophils (%) (Auto) 73, Lymphocytes (%) (Auto) 20, Monocytes (%) (Auto) 6, Eosinophils (%) (Auto) 0, Basophils (%) (Auto) 0, Neutrophils # (Auto) 6.6, Lymphocytes # (Auto) 1.8, Monocytes # (Auto) 0.6, Eosinophils # (Auto) 0.0, Basophils # (Auto) 0.0, Immature Granulocyte # (Auto) 0.1 12/14/21 05:55: White Blood Count 11.9H, Red Blood Count 3.68L, Hemoglobin 10.3L, Hematocrit 31L , Mean Corpuscular Volume 84, Mean Corpuscular Hemoglobin 28, Mean Corpuscular Hemoglobin Concent 33, Red Cell Distribution Width 13.4, Platelet Count 158, Mean Platelet Volume 9.5, Immature Granulocyte % (Auto) 1, Neutrophils (%) (Auto) 75, Lymphocytes (%) (Auto) 17, Monocytes (%) (Auto) 7, Eosinophils (%) (Auto) 0, Basophils (%) (Auto) 0, Neutrophils # (Auto) 8.9H, Lymphocytes # (Auto) 2.1, Monocytes # (Auto) 0.8, Eosinophils # (Auto) 0.0, Basophils # (Auto) 0.0, Immature Granulocyte # (Auto) 0.1 BRITTON BEYER 2, 2022 07:14
--- NOTE | 2021-12-14 07:34 | Discharge Inst-Women's Service ---
Discharge Inst-Women's Serv Depart Medication/Instructions New, Converted or Re-Newed RX: Transmitted to Pharmacy Final Diagnosis PPD 2 NVD Problems Reviewed?: Yes Consults/Follow Up Additional Follow Up: Yes Orders/Referrals Dr. Beyer in 6 weeks Activity Activity: Activity as Tolerated Driving Instructions: No Driving for 1 Week NO SMOKING: NO SMOKING Nothing Inside Vagina: No Douching, No [place], No Tampons Diet Discharge Diet: No Restrictions Symptoms to Report to : Bleeding Excessive, Pain Increased, Fever Over 101 Degrees F, Vaginal Bleeding Increase, Questions/Concerns For Any Problems or Questions: Contact Your Physician BRITTON BEYER DO Dec 14, 2021 07:34
[2021-12-14] MEDS ORDERED: DOCU100C37 PO (07:35)
[2021-12-14] MEDS ORDERED: IBUP-844 PO (07:35)
[2021-12-14] MEDS ORDERED: ACHD5005 PO (07:35)
[2021-12-14 08:48] VITALS: BP 117/66
[2021-12-14] MEDS: DOCUSATE SODIUM 100 MG (COLACE) CAP PO SCH ×2 (09:01→22:04)
[2021-12-14] MEDS: FERROUS SULF 325 MG (IRON) TAB PO SCH (09:01)
[2021-12-14] MEDS: PRENATAL VITAMIN 1 EA TAB PO SCH (09:01)
--- NOTE | 2021-12-14 11:35 | Anesthesia-General Post-Op ---
MAC Patient Condition Mental Status/LOC: Same as Preop Cardiovascular: Satisfactory Nausea/Vomiting: Absent Respiratory: Satisfactory Pain: Controlled Complications: Absent Post Op Complications Complications None Follow Up Care/Instructions Patient Instructions None needed. Anesthesiology Discharge Order Discharge Order Patient is doing well, no complaints, stable vital signs, no apparent adverse anesthesia problems. No complications reported per nursing. GAYATHRI CHE CRNA Dec 14, 2021 11:35
[2021-12-14 11:53] VITALS: BP 108/77
[2021-12-14 16:20] VITALS: BP 110/72
[2021-12-15 00:16] VITALS: BP 108/55
[2021-12-15] MEDS: IBUPROFEN 600 MG (MOTRIN) TAB PO SCH ×3 (00:17→06:17)
[2021-12-15 06:16] VITALS: BP 109/65
[2021-12-15 09:15] VITALS: BP 114/76
[2021-12-15] MEDS: FERROUS SULF 325 MG (IRON) TAB PO SCH (09:16)
[2021-12-15] MEDS: PRENATAL VITAMIN 1 EA TAB PO SCH (09:16)
[2021-12-15] MEDS: DOCUSATE SODIUM 100 MG (COLACE) CAP PO SCH (09:16)
--- NOTE | 2021-12-15 09:35 | Postpartum Progress Note ---
Note Note Day # 2 Subjective: Patient is without complaints. Ambulating, voiding. Tolerating a regular diet without nausea or vomiting. Normal lochia. Pain is well controlled with oral pain medications. Physical Exam: General - Alert and oriented, no apparent distress Abdomen - Soft, appropriately tender to palpation, non-distended, fundus firm at umbilicus Extremities - no edema, negative Carl's bilaterally Assessment: Post- day # 2, status post vaginal delivery. Recovering well, hemodynamically stable Plan: Routine care. Encourage breast feeding. Encourage ambulation. Ferrous sulfate supplementation. Plan for discharge today Vitals - Labs Vital Signs - I&O Vital Signs Date Time Temp Pulse Resp B/P (MAP) Pulse Ox O2 Delivery O2 Flow Rate FiO2 12/15/21 06:16 36.1 66 18 109/65 (80) 99 Room Air 12/15/21 00:16 36.0 85 18 108/55 (72) 98 Room Air 12/14/21 16:20 36.8 85 18 110/72 (85) 98 Room Air 12/14/21 11:53 37.0 86 20 108/77 (87) 98 Room Air Labs Microbiology 12/13/21 Urine Culture - Final, Complete Mixed Bacterial Magalie GUSTAVO CHERY CORRESPONDENCE DICTATOR Dec 15, 2021 09:35
== END 2021-12-15 10:45 | disposition home or self-care (01) | DRG 806 ==
LOC: WSo 09:40 → LDRP 09:41 → WSo 09:52 → LDRP 09:52
PROVIDERS: ADMIT Obstetrics & Gynecology; ATTEND Obstetrics & Gynecology
PROC: 10E0XZZ Delivery of Products of Conception, External Approach (ICD-10-PCS; principal; 2021-12-13)
PROC: 0KQM0ZZ Repair Perineum Muscle, Open Approach (ICD-10-PCS; 2021-12-13)
PROC: 10907ZC Drainage of Amniotic Fluid, Therapeutic from Products of Conception, Via Natural or Artificial Opening (ICD-10-PCS; 2021-12-13)
DX: O70.1 Second degree perineal laceration during delivery (principal); D62 Acute posthemorrhagic anemia; Z37.0 Single live birth; Z3A.38 38 weeks gestation of pregnancy; O90.81 Anemia of the puerperium
CPT/HCPCS: 36415; 81000; 85025; 86850; 86900; 86901; 87088